=== PATIENT | female | born 1950 | race Caucasian/White ===

== ENCOUNTER → 2019-10-17 13:48 | Outpatient (BNVA) | payer MEDICARE, SELFPAY | PROVIDERS: Family Provider Electrodiagnostic Medicine; PCP Electrodiagnostic Medicine; Referring Provider Internal Medicine Rheumatology; Visit Provider Internal Medicine Rheumatology | DX: Z79.899 Other long term (current) drug therapy (principal); M05.79 Rheumatoid arthritis with rheumatoid factor of multiple sites without organ or systems involvement; Z51.81 Encounter for therapeutic drug level monitoring | CPT/HCPCS: 36415; 82565; 84460; 85025; 85651; 86140 ==

== ENCOUNTER → 2019-10-25 08:55 | Outpatient (BNVA) | payer MEDICARE, SELFPAY | PROVIDERS: Family Provider Electrodiagnostic Medicine; PCP Electrodiagnostic Medicine; Referring Provider Family Medicine; Visit Provider Internal Medicine Rheumatology | DX: M05.79 Rheumatoid arthritis with rheumatoid factor of multiple sites without organ or systems involvement (principal); Z79.899 Other long term (current) drug therapy | CPT/HCPCS: 99213 ==

== ENCOUNTER 2019-12-02 12:02 | Outpatient (CLI) | payer MEDICARE, SELFPAY ==
--- NOTE | 2019-12-02 12:08 | MM_ITS ---
WS: [id number] BILATERAL SCREENING DIGITAL MAMMOGRAM WITH CAD HISTORY: SCREENING COMPARISON: 11/02/2018 and 10/30/2017 Bilateral CC and MLO views submitted. Computer aided detection analyzed. Breast composition: There are scattered areas of fibroglandular density. No suspicious masses, microc alcifications or architectural distortion. Benign calcifications within each breast. MM/[place] [id number] IMPRESSION: BI-RADS: 2-Benign FOLLOW UP: 1 Year Follow-up
== END 2019-12-02 12:03 | disposition home or self-care (01) ==
LOC: RADSHAW 12:08
PROVIDERS: Family Provider Electrodiagnostic Medicine; PCP Electrodiagnostic Medicine; Visit Provider Electrodiagnostic Medicine
DX: Z12.31 Encounter for screening mammogram for malignant neoplasm of breast (principal)
CPT/HCPCS: 77067

== ENCOUNTER → 2020-01-16 09:27 | Outpatient (BNVA) | payer MEDICARE, SELFPAY | PROVIDERS: Family Provider Electrodiagnostic Medicine; PCP Electrodiagnostic Medicine; Visit Provider Internal Medicine Rheumatology | DX: M05.79 Rheumatoid arthritis with rheumatoid factor of multiple sites without organ or systems involvement (principal); Z79.899 Other long term (current) drug therapy; Z11.59 Encounter for screening for other viral diseases; Z72.89 Other problems related to lifestyle | CPT/HCPCS: 36415; 80076; 82565; 85025; 85651; 86803 ==

== ENCOUNTER → 2020-01-29 09:41 | Outpatient (BNVA) | payer MEDICARE, SELFPAY | PROVIDERS: Family Provider Electrodiagnostic Medicine; PCP Electrodiagnostic Medicine; Visit Provider Internal Medicine Rheumatology | DX: M05.79 Rheumatoid arthritis with rheumatoid factor of multiple sites without organ or systems involvement (principal); Z79.899 Other long term (current) drug therapy; R76.8 Other specified abnormal immunological findings in serum; Z11.59 Encounter for screening for other viral diseases | CPT/HCPCS: 36415; 86140; 86803; 87522 ==

== ENCOUNTER 2020-03-09 10:26 | Outpatient (CLI) | payer MEDICARE, SELFPAY ==
--- NOTE | 2020-03-09 10:58 | XR_ITS ---
WS: [id number] LUMBAR SPINE TECHNIQUE: 3 views of the lumbar spine CLINICAL INFORMATION: BACK PAIN LUMBAR, SACROILIITIS COMPARISON: April 14, 2016 FINDINGS: Mild lumbar curve convex right. Moderate spinal lytic changes. Disc space narrowing worse at L3-L4 L4 -L5 and L5-S1. Moderate facet arthropathy L4-L5 and L5-S1. A few Schmorl's nodes in the lower thoraci c spine. Aortic calcification. XR/XR lumbar spine 2-3V* [id number] IMPRESSION: 1. Mild lumbar curve convex right. 2. Moderate spondylitic changes with disc space narrowing worse at L3-L4 L4-L5 and L5-S1. This is slightly progressed from 2016. 3. Moderate facet arthropathy L4-L5 and L5-S1.
== END 2020-03-09 10:27 | disposition home or self-care (01) ==
LOC: RADWPI 10:30
PROVIDERS: Family Provider Electrodiagnostic Medicine; PCP Electrodiagnostic Medicine; Visit Provider Electrodiagnostic Medicine
DX: F51.04 Psychophysiologic insomnia (principal); M54.5 Low back pain; M46.1 Sacroiliitis, not elsewhere classified; M06.9 Rheumatoid arthritis, unspecified; M47.817 Spondylosis without myelopathy or radiculopathy, lumbosacral region
CPT/HCPCS: 72100

== ENCOUNTER → 2020-04-02 11:31 | Outpatient (BNVA) | payer MEDICARE, SELFPAY | PROVIDERS: Family Provider Electrodiagnostic Medicine; PCP Electrodiagnostic Medicine; Visit Provider Internal Medicine Rheumatology | DX: M05.79 Rheumatoid arthritis with rheumatoid factor of multiple sites without organ or systems involvement (principal); Z79.899 Other long term (current) drug therapy; M47.816 Spondylosis without myelopathy or radiculopathy, lumbar region; M19.041 Primary osteoarthritis, right hand; M19.042 Primary osteoarthritis, left hand | CPT/HCPCS: 99214 ==

== ENCOUNTER 2020-04-06 13:49 | Outpatient (CLI) | payer MEDICARE, SELFPAY ==
--- NOTE | 2020-04-06 14:01 | XR_ITS ---
WS: [id number] HAND LEFT TECHNIQUE: 3 views of the left hand CLINICAL INFORMATION: rheumatoid arthritis COMPARISON: None. FINDINGS: Mild degenerative arthritis at the first CMC and STT with joint space narrowing. Chronic well-cortica zohra ulna styloid process fracture. Calcification along the TFCC. Mild narrowing of the radiocarpal erika int. No significant erosive changes. XR/XR hand LT min 3V* [id number] IMPRESSION: 1. No significant erosive changes. 2. Mild degenerative arthritis first CMC and STT.
--- NOTE | 2020-04-06 14:01 | XR_ITS ---
WS: [id number] FOOT RIGHT TECHNIQUE: 3 views of the right foot CLINICAL INFORMATION: rheumatoid arthritis COMPARISON: None. FINDINGS: Evidence of prior healed fracture second metatarsal shaft with cortical thickening No evidence of acute fracture or dislocation. Normal tarsal metatarsal alignment. Normal calcaneus. N ormal visualized talar dome. No acute findings. XR/XR foot RT min 3V* [id number] IMPRESSION: Unremarkable right foot.
--- NOTE | 2020-04-06 14:01 | XR_ITS ---
WS: [id number] HAND RIGHT TECHNIQUE: 3 views of the right hand CLINICAL INFORMATION: rheumatoid arthritis COMPARISON: None. FINDINGS: Moderate degenerative arthritis first CMC and STT with subchondral sclerosis and cystic change. Normal metacarpals. Normal MCP joint. Metacarpal heads are normal in appearance. Normal PIP and DIP j oints. No evidence of acute fracture or dislocation. Radiocarpal joint: Normal. XR/XR hand RT min 3V* [id number] IMPRESSION: 1. Moderate degenerative arthritis the first CMC and STT. 2. No erosive changes.
--- NOTE | 2020-04-06 14:01 | XR_ITS ---
WS: [id number] FOOT LEFT TECHNIQUE: 3 views of the left foot CLINICAL INFORMATION: rheumatoid arthritis COMPARISON: None. FINDINGS: No evidence of acute fracture or dislocation. Normal tarsal metatarsal alignment. Normal calcaneus. N ormal visualized talar dome. No acute findings. XR/XR foot LT min 3V* [id number] IMPRESSION: Normal left foot.
== END 2020-04-06 13:50 | disposition home or self-care (01) ==
LOC: RADWPI 13:53
PROVIDERS: Family Provider Electrodiagnostic Medicine; PCP Electrodiagnostic Medicine; Visit Provider Internal Medicine Rheumatology
DX: M06.9 Rheumatoid arthritis, unspecified (principal); M19.042 Primary osteoarthritis, left hand; M19.041 Primary osteoarthritis, right hand
CPT/HCPCS: 73130; 73630

== ENCOUNTER 2020-04-24 10:39 | Emergency (ER) | payer MEDICARE, SELFPAY ==
[2020-04-24 10:42] VITALS: PULSE 103; RESP 16; TEMP 36.4; O2SAT 99; BMI 26.2
--- NOTE | 2020-04-24 10:44 | XRR_ITS ---
PROCEDURE INFORMATION: Exam: XR Chest, 1 View Exam date and time: 04/24/2020 11:00 AM Age: 69 years old Clinical indication: Cough and dyspnea; Additional info: Dyspnea/cough TECHNIQUE: Imaging protocol: XR of the chest Views: 1 view. COMPARISON: CR Chest 2 views* [id number] 10/04/2018 1:41 PM FINDINGS: Lungs: Unremarkable. No consolidation. Pleural space: Unremarkable. No pleural effusion. No pneumothorax. Heart/Mediastinum: Unremarkable. No cardiomegaly. Bones/joints: Unremarkable. XR/XR chest 1V portable [id number] IMPRESSION: No acute findings.
--- NOTE | 2020-04-24 10:44 | ECG_ITS ---
[facility] Test Date: 2020-04-24 Pat Name: Judy Brian Department: Room: Gender: Female Pocket Stitcher: : 1950 Requested By: Niranjan Ennis Order Number: [id number] Hesham MD: Dustin Hernandez M.D. Measurements Intervals [place] Rate: 78 P: 19 PA: 157 QRS: -13 QRSD: 90 T: 43 QT: 366 QTc: 418 Interpretive Statements SINUS RHYTHM No previous ECG available for comparison Electronically Signed On 04-24-2020 20:12:49 CDT by Dustin Hernandez M.D. [id number]
--- NOTE | 2020-04-24 11:06 | ED_ITS ---
HPI - General Adult General: Chief complaint: General Medical Stated complaint: HIGH BP Time Seen by Provider: 04/24/20 10:41 History of Present Illness: HPI narrative: 69-year-old female presents with elevated blood pressure. She has a history of rheumatoid arthritis and had her medicine changed to stop methotrexate and started Leslumonide. After that she noticed her blood pressure being elevated she is not currently on any blood pressure medications and generally has not been treated for blood pressure issues in the past. She denies any headache difficulty with speech or swallowing any numbness or tingling or weakness in her extremities. Onset (ago): hour(s) Radiation: non-radiation Severity: moderate Associated symptoms: Reports no associated symptoms; Deny chest pain, dyspnea, malaise, nausea, rash or vomiting Treatments prior to arrival: none Review of Systems Const: Denies: fever(s), chills, body aches, change in appetite, fatigue or malaise ENMT: Denies: throat pain, ear or mastoid pain, nasal discharge or nasal congestion Card: Denies: chest pain, edema, dyspnea on exertion or orthopnea Resp: Denies: dyspnea, productive cough or non-productive cough GI: Denies: abdominal pain, nausea, vomiting, hematemesis, coffee ground emesis, diarrhea, constipation, bloating, hematochezia or melena : Denies: flank pain, difficulty voiding, dysuria, urinary frequency or urinary urgency Skin/Breast: Denies: rash or pruritus PFS ED PFSH: Medical History Degenerative joint disease (DJD) of lumbar spine Hepatitis C antibody test positive High risk medication use Immunization counseling Recurrent UTI Surgical History History of cholecystectomy History of hysterectomy with bilateral oophorectomy History of thyroid surgery Family History Other CAD (coronary artery disease) Diabetes Hypertension Rheumatoid arthritis Denies family history of Chronic kidney disease (CKD) Systemic lupus erythematosus (SLE) in adult Lung disease Cancer Stroke Social History Smoking and tobacco status: former smoker Quit status (tobacco): has quit using tobacco Year quit tobacco: 2007 Alcohol intake: current Alcohol intake frequency: 0-2 Drinks per Day Alcohol t ype: wine Lives independently: No Marital status: Current occupational status: employed History of recent travel: No Physical Exam Const: COMMON NORMALS: no acute distress GENERAL APPEARANCE: cooperative and comfortable ORIENTATION/CONSCIOUSNESS: Yes awake, Yes oriented to person, Yes oriented to place and Yes oriented to time HENMT: COMMON NORMALS: normocephalic, atraumatic, hearing grossly normal bilaterally, external ears normal, EAC's normal, TM's normal bilaterally, Normal nasal mucous membranes and turbinates present, moist oral mucous membranes and oropharynx normal HEAD & SCALP: normocephalic and atraumatic NOSE: Normal nasal mucous membranes and turbinates present EXTERNAL EAR: Yes external ears normal EXTERNAL AUDITORY CANAL: EAC's normal TYMPANIC MEMBRANE: TM's normal bilaterally Eye: COMMON NORMALS: Equal, round and reactive pupils present, EOMs intact bilaterally, conjunctivae normal and no scleral icterus CONJUNCTIVA: Yes conjunctivae normal PUPIL: Yes Equal, round and reactive pupils present Neck/C-Spine: COMMON NORMALS: full ROM, no lymphadenopathy, supple and no JVD Lymph: LYMPHATIC: no lymphadenopathy noted and no lymphedema noted Resp: COMMON NORMALS: normal respiratory effort, No retractions, No use of accessory muscles and clear to auscultation bilaterally AUSCULTATION: clear to auscultation bilaterally Cardio: COMMON NORMALS: no JVD, regular rate, regular rhythm and No murmurs present (Cardio) RATE: regular rate RHYTHM: regular rhythm GI: COMMON NORMALS: Soft to palpation and No hepatosplenomegaly present AUSCULTATION: Yes normoactive bowel sounds PALPATION: Yes Soft to palpation, No Tenderness to palpation present (GI), No Guarding due to palpation present (GI) and Yes No hepatosplenomegaly present Extremity: COMMON NORMALS: normal to inspection, capillary refill normal, no clubbing, cyanosis or edema, no calf tenderness and no pedal edema Neuro: SENSORIUM/ORIENTATION: Yes oriented to person, Yes oriented to place and Yes oriented to time Skin: COMMON NORMALS: no rashes or lesions noted GENERAL SKIN EXAM: no rashes or lesions noted Course Vital Signs: Vital signs: Vital Signs Temperature 98.9 F 04/24/20 13:49 Pulse Rate 93 04/24/20 13:49 Respiratory Rate 16 04/24/20 13:49 Blood Pressure 143/79 04/24/20 13:49 Pulse Oximetry 97 04/24/20 13:49 MDM - General Adult MDM Narrative: Medical decision making narrative: Reviewed findings we will go ahead and add amlodipine. Recheck with primary care doctor within 1 week. If has any worsening problems return to the emergency room Lab Data: Labs: Lab Results 04/24/20 04/24/20 Range/Units 11:02 11:02 WBC 6.5 (4.0-10.0) 10^3/ uL RBC 4.62 (4.1-5.3) 10^6/u L Hgb 15.8 H (11.5-15.3) g/dL Hct 45.9 (37.0-47.0) % MCV 99.4 H (81-99) fL MCH 34.2 H (28.0-34.0) pg MCHC 34.4 (30.0-36.0) g/dL RDW 13.1 (12.1-15.1) % Plt Count 227 (130-400) 10^3/c mm MPV 10.3 (7.4-10.4) fL Neut % (Auto) 41.0 % Lymph % (Auto) 39.9 % [place] % (Auto) 15.6 % Eos % (Auto) 1.5 % Baso % (Auto) 1.8 % Neut # (Auto) 2.66 (1.8-7.7) 10^3/u L Lymph # (Auto) 2.6 (0.8-4.8) 10^3/u L [place] # (Auto) 1.0 H (0.2-0.9) 10^3/u L Eos # (Auto) 0.1 (0.0-0.8) 10^3/u L Baso # (Auto) 0.1 (0.0-0.1) 10^3/u L Nucleated RBC % (a uto) 0 % Nucleated RBCs # 0.0 /100WBC Sodium 137 (136-145) mmol/L Potassium 4.4 (3.5-5.1) mmol/L Chloride 102 (98-107) mmol/L Carbon Dioxide 24 (22-29) mmol/L Anion Gap 15.4 (5-19) BUN 12 (8-23) mg/dL Creatinine 0.8 (0.5-0.9) mg/dL GFR Calculation 71.1 L (90-130) mL/min Glucose 123 H (65-115) mg/dL Calculated Osmolal ity 281 L (285-295) mOsm/k g Calcium 10.0 (8.5-10.5) mg/dL Total Bilirubin 0.4 (0.15-1.2) mg/dL AST 37 H (0-32) U/L ALT 33 (0-33) U/L Alkaline Phosphata se 91 (35-105) IU/L Total Protein 8.6 (6.6-8.7) g/dL Albumin 4.9 (3.5-5.2) g/dL Globulin 3.7 (1.3-4.6) g/dL Discharge Plan Discharge Patient Disposition: Home Clinical Impression: Hypertension, Seropositive rheumatoid arthritis of multiple joints, High risk medication use Condition: Stable Prescriptions: New amlodipine 5 mg tablet 5 mg PO DAILY Qty: 30 RF: 0 No Action Enbrel SureClick 50 mg/mL (1 mL) pen injector 50 mg SUBCUT Q7D RF: 0 vitamin B complex Tablet 1 tab PO DAILY RF: 0 amitriptyline 50 mg tablet 50 mg PO BEDTIME RF: 0 multivitamin Tablet 1 tab PO QAM RF: 0 cholecalciferol (vitamin D3) 3,000 unit tablet 3,000 unit PO DAILY RF: 0 folic acid 800 mcg tablet 800 mg PO BID RF: 0 leflunomide 10 mg tablet 10 mg PO DAILY Qty: 30 RF: 2 prednisone 10 mg tablet See Rx Instructions PO .COMPLEX PRN (Reason: joint pain) Qty: 30 RF: 2 celecoxib 200 mg capsule 200 mg PO DAILY RF: 0 hydrocodone-acetaminophen 5-325 mg tablet 1 tab PO Q8H PRN (Reason: Pain) RF: 0 estradiol 0.5 mg tablet 0.5 mg PO DAILY RF: 0 Flonase Allergy Relief 50 mcg/actuation [place],Suspension 1 - 2 spray INTRANASAL PRN RF: 0 melatonin 5 mg Tablet 5 mg PO BEDTIME PRN (Reason: Sleep) RF: 0 biotin 1 cap PO DAILY RF: 0 diclofenac sodium 1 % gel 2 gm TOPICAL QID PRN (Reason: Pain) RF: 0 Discharge Orders: Discharge Order (Routine); Ordered 07/24/20 Ordered By: Niranjan Heart Referrals: Nino Olson, [Primary Care Provider] - Activity Restrictions/Additional Instructions: 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 Discharge Date/Time: 04/24/20 13:52 Coding Level of Care Code ED Carpentry Teacher for Chg Fwd Exam Comprehensive
[2020-04-24 11:10] VITALS: BP 181/89; PULSE 88; RESP 16; O2SAT 97
[2020-04-24 11:11] LABS: Basophils # 0.1 10^3/uL (0.0-0.1); Basophils % 1.8 %; Eosinophils # 0.1 10^3/uL (0.0-0.8); Eosinophils % 1.5 %; Hematocrit 45.9 % (37.0-47.0); Hemoglobin 15.8 g/dL (11.5-15.3); Lymphocytes # 2.6 10^3/uL (0.8-4.8); Lymphocytes % 39.9 %; Mean Corpuscular HGB Conc 34.4 g/dL (30.0-36.0); Mean Corpuscular Hemoglobin 34.2 pg (28.0-34.0); Mean Corpuscular Volume 99.4 fL (81-99); Mean Platelet Volume 10.3 fL (7.4-10.4); Monocytes % 15.6 %; Neutrophils # 2.66 10^3/uL (1.8-7.7); Nucleated Red Blood Cells % 0 %; Platelet Count 227 10^3/cmm (130-400); Red Blood Count 4.62 10^6/uL (4.1-5.3); Red Cell Distribution Width 13.1 % (12.1-15.1); White Blood Count 6.5 10^3/uL (4.0-10.0)
[2020-04-24 11:24] LABS: Alanine Aminotransferase 33 U/L (0-33); Albumin Level 4.9 g/dL (3.5-5.2); Alkaline Phosphatase 91 IU/L (35-105); Anion Gap 15.4 (5-19); Aspartate Amino Transferase 37 U/L (0-32); Blood Urea Nitrogen 12 mg/dL (8-23); Carbon Dioxide 24 mmol/L (22-29); Chloride 102 mmol/L (98-107); Creatinine Clr Calc Pharmacy 58.6795; Globulin 3.7 g/dL (1.3-4.6); Glomerular Filtration Rate 71.1 mL/min (90-130); Glucose 123 mg/dL (65-115); Osmolality Calculated 281 mOsm/kg (285-295); Potassium 4.4 mmol/L (3.5-5.1); Sodium 137 mmol/L (136-145); Total Bilirubin 0.4 mg/dL (0.15-1.2); Total Protein 8.6 g/dL (6.6-8.7)
[2020-04-24] MEDS: hyDRALAzine 20 mg/mL INJ 1 mL 5 MG IVP (11:27)
[2020-04-24] MEDS: amlodipine 5 mg Tablet PO (11:27)
[2020-04-24 11:40] VITALS: BP 151/82; PULSE 92; RESP 18; O2SAT 99
[2020-04-24 12:08] VITALS: BP 147/69; PULSE 90; RESP 16; O2SAT 96
[2020-04-24 13:36] VITALS: BP 143/79; PULSE 93; RESP 16; O2SAT 97
[2020-04-24 13:49] VITALS: BP 143/79; PULSE 93; RESP 16; TEMP 37.2; O2SAT 97
== END 2020-04-24 13:52 | disposition home or self-care (01) ==
PROVIDERS: Emergency Provider Family Medicine; PCP Electrodiagnostic Medicine
DX: I10 Essential (primary) hypertension (principal); M05.9 Rheumatoid arthritis with rheumatoid factor, unspecified; Z86.19 Personal history of other infectious and parasitic diseases; Z87.891 Personal history of nicotine dependence
CPT/HCPCS: 12345; 71045; 80053; 85025; 93005; 96374; 96375; 99283; 99284; J0360

== ENCOUNTER → 2020-05-06 09:51 | Outpatient (BNVA) | payer MEDICARE, SELFPAY | PROVIDERS: PCP Electrodiagnostic Medicine; Visit Provider Internal Medicine Rheumatology | DX: Z79.899 Other long term (current) drug therapy (principal); M06.9 Rheumatoid arthritis, unspecified | CPT/HCPCS: 36415; 80076; 82306; 82310; 82565; 85025; 85651; 86140 ==

== ENCOUNTER → 2020-06-29 12:54 | Outpatient (BNVA) | payer MEDICARE, SELFPAY | PROVIDERS: PCP Electrodiagnostic Medicine; Referring Provider Dermatology; Visit Provider Dermatology | DX: Z85.828 Personal history of other malignant neoplasm of skin (principal); D48.5 Neoplasm of uncertain behavior of skin; L57.0 Actinic keratosis; L57.8 Other skin changes due to chronic exposure to nonionizing radiation; D48.9 Neoplasm of uncertain behavior, unspecified | CPT/HCPCS: 11102; 17000; 17003; 88304; 99203; 99204 ==

== ENCOUNTER 2020-07-06 13:57 | Outpatient (CLI) | payer MEDICARE, SELFPAY ==
--- NOTE | 2020-07-06 14:51 | MR_ITS ---
WS: [id number] MRI LUMBAR SPINE NONCONTRAST TECHNIQUE: Sagittal T1, T2 and STIR imaging. Axial T1 and T2 imaging. CLINICAL INFORMATION: LOW BACK PAIN W/ RADICULOPATHY COMPARISON: None. FINDINGS: Mild lumbar curve. No acute compression. Disc bulging worse at L2-L3 L3-L4 and L4-5. Small disc protr usions in the lower thoracic spine at T10-T11 and T11-T12. L1-L2: Mild annular bulging with slight effacement of the ventral thecal sac. Slight narrowing of the right subarticular recess. Mild facet arthropathy. L2-L3: Mild disc bulging with osteophytic ridging. Mild central canal stenosis. Impingement on the le ft subarticular recess. Moderate facet arthropathy. Small left foraminal protrusion with mild left an d no significant right foraminal narrowing. L3-L4: Disc osteophyte complex with endplate ridging. Severe central canal stenosis. Moderate facet a rthropathy. Impingement subarticular recess bilaterally. Moderate left and no significant right lanie inal narrowing. L4-L5: Mild disc bulging with endplate ridging. Moderate to severe central canal stenosis with modera te facet arthropathy. Impingement on the traversing L5 nerve roots. Moderate to severe right and mild left foraminal narrowing. L5-S1: Mild disc bulging with osteophytic ridging. Slight impingement traversing left greater than ri ght S1 nerve roots. Mild bilateral foraminal narrowing left greater than right. Mild facet arthropath y. Visualized pelvic bony structures: Normal. Paravertebral soft tissues: Normal. MR/MR lumbar spine wo con* [id number] IMPRESSION: 1. Severe central canal stenosis L3-4 and moderate to severe central canal raven nosis L4-5 due to disc bulging with facet arthropathy and ligament flavum hyper trophy. 2. Moderate to severe right L4-5 foraminal narrowing. 3. Mild to moderate foraminal narrowing at left L2-3, left L3-4, left greater than right L5-S1. 4. Moderate to advanced facet arthropathy L3-L4 and L4-L5.
== END 2020-07-06 13:58 | disposition home or self-care (01) ==
PROVIDERS: PCP Electrodiagnostic Medicine; Visit Provider Electrodiagnostic Medicine
DX: M54.16 Radiculopathy, lumbar region (principal); M48.061 Spinal stenosis, lumbar region without neurogenic claudication; M47.816 Spondylosis without myelopathy or radiculopathy, lumbar region
CPT/HCPCS: 72148

== ENCOUNTER → 2020-07-14 08:59 | Outpatient (BNVA) | payer MEDICARE, SELFPAY | PROVIDERS: Family Provider Electrodiagnostic Medicine; PCP Electrodiagnostic Medicine; Visit Provider Internal Medicine Rheumatology | DX: M05.79 Rheumatoid arthritis with rheumatoid factor of multiple sites without organ or systems involvement (principal); Z79.899 Other long term (current) drug therapy; M47.816 Spondylosis without myelopathy or radiculopathy, lumbar region; M19.041 Primary osteoarthritis, right hand; M19.042 Primary osteoarthritis, left hand | CPT/HCPCS: 99214 ==

== ENCOUNTER → 2020-08-03 10:30 | Outpatient (BNVA) | payer MEDICARE, SELFPAY | PROVIDERS: Family Provider Electrodiagnostic Medicine; PCP Electrodiagnostic Medicine; Visit Provider Dermatology | DX: D48.9 Neoplasm of uncertain behavior, unspecified (principal) | CPT/HCPCS: 88304 ==

== ENCOUNTER 2020-08-12 09:41 | Outpatient (CLI) | payer MEDICARE, SELFPAY ==
--- NOTE | 2020-08-12 09:51 | XR_ITS ---
WS: [id number] Chest 2 views, 08/12/2020 Clinical Data: BRONCHITIS, ACUTE Comparison: Portable chest, 04/24/2020. Findings: No nodules, masses or effusions are seen. The heart is normal. The pulmonary vascularity is not increased. No pneumonia or pneumothorax is seen. There is minimal atherosclerotic change of the aortic arch. XR/XR chest 2V* [id number] Impression: Atherosclerosis.
== END 2020-08-12 09:42 | disposition home or self-care (01) ==
PROVIDERS: PCP Electrodiagnostic Medicine; Visit Provider Electrodiagnostic Medicine
DX: J20.9 Acute bronchitis, unspecified (principal); I70.90 Unspecified atherosclerosis
CPT/HCPCS: 71046

== ENCOUNTER → 2020-09-10 12:57 | Outpatient (BNVA) | payer MEDICARE, SELFPAY | PROVIDERS: PCP Electrodiagnostic Medicine; Visit Provider Specialist | DX: Z20.828 Contact with and (suspected) exposure to other viral communicable diseases (principal); Z01.812 Encounter for preprocedural laboratory examination | CPT/HCPCS: 87635 ==

== ENCOUNTER 2020-09-15 10:49 | Outpatient (CLI) | payer MEDICARE, SELFPAY ==
--- NOTE | 2020-09-15 13:15 | PFTS_ITS ---
Date of Study:09/15/20 Date of Dictation: 09/15/20 MECHANICS: Forced vital capacity (FVC) is normal 117 normal 117 Forced expiratory volume in one second (FEV1) is normal 117. FEV1/FVC is normal 78 FLOW VOLUME LOOP: Normal . LUNG VOLUMES: Not measured DIFFUSING CAPACITY FOR CARBON MONOXIDE: Not measured . INTERPRETATION: The spirometry is normal. Please correlate clinically MTDD
== END 2020-09-15 10:50 | disposition home or self-care (01) ==
LOC: RT 10:50
PROVIDERS: PCP Electrodiagnostic Medicine; Visit Provider Specialist
DX: J37.0 Chronic laryngitis (principal)
CPT/HCPCS: 94010

== ENCOUNTER 2020-10-14 09:58 | Outpatient (CLI) | payer MEDICARE, SELFPAY ==
--- NOTE | 2020-10-14 10:24 | XR_ITS ---
WS: [id number] Right hand, 3 views, 10/14/2020 Clinical Data: RHEUMATOID ARTHRITIS Comparison: Right hand, 04/06/2020. Findings: No fractures or dislocations are seen. The soft tissues are unremarkable. There is osteoa rthritic change of the trapezium articulation with the base of the right first metacarpal.No periarti cular demineralization or calcifications are seen. XR/XR hand RT 2V [id number] Impression: Osteoarthritis unchanged at the base of the right first metacarpal.
--- NOTE | 2020-10-14 10:24 | XR_ITS ---
WS: [id number] Left hand, 2 views, 10/14/2020 Clinical Data: RHEUMATOID ARTHRITIS Comparison: Left hand, 04/06/2020. Findings: No fractures or dislocations are seen. The soft tissues are unremarkable. There is osteoarthritic ismael nge at the base of the left first metacarpal. No periarticular demineralization or calcifications are seen. There is an old injury of the ulnar styloid. 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
--- NOTE | 2020-10-14 10:24 | XR_ITS ---
WS: [id number] Chest 2 views, 10/14/2020 Clinical Data: SCREENING FOR TUBERCULOSIS Comparison: PA and lateral chest, 08/12/2020. Findings: No nodules, masses or effusions are seen. The heart is normal. The pulmonary vascularity is not increased. No pneumonia or pneumothorax is seen. The aortic arch shows minimal calcification XR/XR chest 2V* [id number] Impression: Atherosclerosis.
[2020-10-14 12:58] LABS: Basophils # 0.1 10^3/uL (0.0-0.1); Basophils % 0.8 %; Eosinophils # 0.1 10^3/uL (0.0-0.8); Eosinophils % 0.8 %; Hematocrit 42.4 % (37.0-47.0); Hemoglobin 14.7 g/dL (11.5-15.3); Lymphocytes # 2.2 10^3/uL (0.8-4.8); Lymphocytes % 34.5 %; Mean Corpuscular HGB Conc 34.7 g/dL (30.0-36.0); Mean Corpuscular Hemoglobin 34.9 pg (28.0-34.0); Mean Corpuscular Volume 100.7 fL (81-99); Mean Platelet Volume 10.1 fL (7.4-10.4); Monocytes # 0.9 10^3/uL (0.2-0.9); Monocytes % 13.9 %; Neutrophils % 49.8 %; Nucleated Red Blood Cells % 0 %; Platelet Count 272 10^3/cmm (130-400); Red Blood Count 4.21 10^6/uL (4.1-5.3); Red Cell Distribution Width 12.1 % (12.1-15.1); White Blood Count 6.4 10^3/uL (4.0-10.0)
[2020-10-14 13:18] LABS: Alanine Aminotransferase 57 U/L (0-33); C Reactive Protein 5.1 mg/L (0.0-4.9); Glomerular Filtration Rate 98.8 mL/min (90-130)
[2020-10-14 13:35] LABS: Erythrocyte Sedimentation Rate 15 mm/hr (0-15)
[2020-10-15 11:42] LABS: Cyclic Citrullinated Peptide 183 UNITS
[2020-10-16 12:43] LABS: Quantiferon Mitogen >10.00 IU/mL; Quantiferon Nil 0.04 IU/mL; Quantiferon TB Gold NEGATIVE (NEGATIVE)
== END 2020-10-14 09:59 | disposition home or self-care (01) ==
PROVIDERS: PCP Electrodiagnostic Medicine; Visit Provider Internal Medicine Rheumatology
DX: Z11.1 Encounter for screening for respiratory tuberculosis (principal); M19.042 Primary osteoarthritis, left hand; M19.041 Primary osteoarthritis, right hand; I70.90 Unspecified atherosclerosis
CPT/HCPCS: 36415; 71046; 73120; 82565; 84460; 85025; 85651; 86140; 86431; 86480

== ENCOUNTER 2020-12-31 11:37 | Outpatient (CLI) | payer MEDICARE, SELFPAY ==
--- NOTE | 2020-12-31 11:42 | MM_ITS ---
WS: [id number] BILATERAL SCREENING DIGITAL MAMMOGRAM WITH CAD HISTORY: SCREENING COMPARISON: 12/02/2019 and 11/02/2018 Bilateral CC and MLO views submitted. Computer aided detection analyzed. Breast composition: There are scattered areas of fibroglandular density. No suspicious masses, microc alcifications or architectural distortion. Scattered benign calcifications in each breast. MM/[place] [id number] IMPRESSION: BI-RADS: 2-Benign FOLLOW UP: 1 Year Follow-up
== END 2020-12-31 11:38 | disposition home or self-care (01) ==
PROVIDERS: PCP Electrodiagnostic Medicine; Visit Provider Electrodiagnostic Medicine
DX: Z12.31 Encounter for screening mammogram for malignant neoplasm of breast (principal)
CPT/HCPCS: 77067

== ENCOUNTER 2021-01-15 14:18 | Outpatient (CLI) | payer MEDICARE, SELFPAY ==
--- NOTE | 2021-01-15 14:24 | XR_ITS ---
WS: [id number] Bone mineral density performed on a bead Button, today Clinical data: POST MENOPAUSAL STATUS Comparison study: DEXA scan, 05/02/2019. Findings: The first 4 lumbar vertebral bodies demonstrated the bone mineral density of 1.428 g/cm2 for a young adult T score of 2.1. The bone mineral density has diminished but the young adult T score has improv ed compared to the prior scan. Measurement of the left hip reveals a bone mineral density of 0.860 g/cm2 with a young adult T score of -1.2. The bone mineral density and the deltoid score have improved compared to prior scan. Measurement of the right hip reveals the bone mineral density of 0.857 g/cm2 for young adult T score of -1.2. The bone mineral density and the young adult T score have improved compared to the prior sca n. XR/XR DEXA axial skeleton* [id number] Impression: Osteopenia of the lumbar spine and both hips.
== END 2021-01-15 14:19 | disposition home or self-care (01) ==
PROVIDERS: PCP Electrodiagnostic Medicine; Visit Provider Electrodiagnostic Medicine
DX: Z78.0 Asymptomatic menopausal state (principal); M85.88 Other specified disorders of bone density and structure, other site
CPT/HCPCS: 77080

== ENCOUNTER 2021-04-06 09:39 | Outpatient (CLI) | payer MEDICARE, SELFPAY ==
[2021-04-06 10:09] LABS: Hematocrit 41.4 % (37.0-47.0); Hemoglobin 14.2 g/dL (11.5-15.3); Mean Corpuscular HGB Conc 34.3 g/dL (30.0-36.0); Mean Corpuscular Hemoglobin 34.4 pg (28.0-34.0); Mean Corpuscular Volume 100.2 fL (81-99); Mean Platelet Volume 10.2 fL (7.4-10.4); Platelet Count 256 10^3/cmm (130-400); Red Blood Count 4.13 10^6/uL (4.1-5.3); Red Cell Distribution Width 12.7 % (12.1-15.1); White Blood Count 5.5 10^3/uL (4.0-10.0)
[2021-04-06 10:31] LABS: Alanine Aminotransferase 40 U/L (0-33); C Reactive Protein 4.9 mg/L (0.0-4.9); Glomerular Filtration Rate 98.8 mL/min (90-130)
[2021-04-06 10:55] LABS: Absolute Eosinophils 0.1 10^3/cmm (0.0-0.7); Absolute Neutrophil 2.8 10^3/cmm (1.4-6.5); Absolute Segmented Neutrophil 2.8 10/cmm (1.6-7.1); Eosinophils 2 %; Lymphocytes 39 %; Lymphocytes Absolute 2.3 10^3/cmm (1.2-3.4); Monocytes Absolute 0.4 10^3/cmm (0.1-0.6); Platelet Estimate Normal (Normal); Segmented Neutrophils 50 %; Total Cells Counted 100 (0-100)
[2021-04-06 11:06] LABS: Erythrocyte Sedimentation Rate 17 mm/hr (0-15)
== END 2021-04-06 09:40 | disposition home or self-care (01) ==
PROVIDERS: PCP Electrodiagnostic Medicine; Visit Provider Internal Medicine Rheumatology
DX: M05.79 Rheumatoid arthritis with rheumatoid factor of multiple sites without organ or systems involvement (principal)
CPT/HCPCS: 82565; 84460; 85007; 85027; 85651; 86140

== ENCOUNTER 2022-03-11 13:08 | Outpatient (CLI) | payer MEDICARE, SELFPAY ==
--- NOTE | 2022-03-11 13:22 | MM_ITS ---
WS: [id number] BILATERAL 3D TOMOSYNTHESIS DIGITAL SCREENING MAMMOGRAPHY WITH CAD CLINICAL INFORMATION: SCREENING HISTORY: Screening mammogram. No current complaints. COMPARISON: December 31, 2020 TECHNIQUE: Bilateral CC and MLO views. FINDINGS: Scattered fibroglandular densities bilaterally. Punctate and lucent calcifications. Stable clustered calcifications. Vascular calcifications. No suspicious focal mass, asymmetry, calcifications, or arch itectural distortion. No evidence of malignancy. MM/[place] [id number] IMPRESSION: BI-RADS: 2-Benign FOLLOW UP: 1 Year Follow-up Recommend return to annual screening mammography.
== END 2022-03-11 13:09 | disposition home or self-care (01) ==
LOC: RAD 13:09
PROVIDERS: PCP Electrodiagnostic Medicine; Visit Provider Electrodiagnostic Medicine
DX: Z12.31 Encounter for screening mammogram for malignant neoplasm of breast (principal)
CPT/HCPCS: 77063; 77067

== ENCOUNTER 2022-06-27 21:11 | Emergency (ER) | payer MEDICARE, SELFPAY ==
[2022-06-27 21:15] VITALS: BP 162/83; PULSE 95; RESP 16; TEMP 36.8; O2SAT 97; BMI 26.0
--- NOTE | 2022-06-27 21:36 | XRR_ITS ---
PROCEDURE INFORMATION: Exam: XR Right Shoulder Exam date and time: 06/27/2022 9:52 PM Age: 71 years old Clinical indication: Pain; Shoulder; Right; Additional info: Right shoulder pain TECHNIQUE: Imaging protocol: Radiologic exam of the Right shoulder. Views: 2 or more views. COMPARISON: CR XR chest 2V* [id number] 10/14/2020 12:23 PM FINDINGS: Bones/joints: Normal. The AC joint is normally aligned. Soft tissues: Normal. XR/XR shoulder RT min 2V* [id number] IMPRESSION: Unremarkable
--- NOTE | 2022-06-28 00:23 | W.ED.EXTPRO ---
HPI - Extremity Problem General: Chief complaint: Extremity Injury, Upper Stated complaint: Pain Right Shoulder\Front and Back Time Seen by Provider: 06/28/22 00:23 History of Present Illness: 71-year-old female comes in today for complaints of right shoulder pain. Patient has a history of rheumatoid arthritis. Patient reports that she did not fall or injure she just woke up with her pain was active in the shoulder. Patient had tried to get a hold of Dr. Olson for a refill on her hydrocodone but did not get response today. Patient came in seeking help for pain control of her shoulder. Patient appears nontoxic. Patient appears in moderate pain. Associated symptoms: Deny chest pain, fever(s) or rash Review of Systems Const: Denies: fever(s) Card: Denies: chest pain Resp: Denies: dyspnea Musc: Reports: joint pain Skin/Breast: Denies: rash PFSH ED PFSH: Medical History Degenerative joint disease (DJD) of lumbar spine Hepatitis C antibody test positive High risk medication use History of nonmelanoma skin cancer Immunization counseling Recurrent UTI Surgical History History of cholecystectomy History of hysterectomy with bilateral oophorectomy History of thyroid surgery Family History Other CAD (coronary artery disease) Diabetes Hypertension Rheumatoid arthritis Denies family history of Chronic kidney disease (CKD) Systemic lupus erythematosus (SLE) in adult Lung disease Cancer Stroke Social History Smoking and tobacco status: former smoker Quit status (tobacco): has quit using tobacco Year quit tobacco: 2007 Alcohol intake: current Alcohol intake frequency: 0-2 Drinks per Day Alcohol type: wine Lives independently: No Marital status: Current occupational status: employed History of recent travel: No Physical Exam Const: COMMON NORMALS: alert HENMT: COMMON NORMALS: normocephalic HEAD & SCALP: normocephalic Neck/C-Spine: COMMON NORMALS: full ROM Resp: COMMON NORMALS: normal respiratory effort Cardio: COMMON NORMALS: regular rate and regular rhythm RATE: regular rate RHYTHM: regular rhythm GI: COMMON NORMALS: Soft to palpation PALPATION: Yes Soft to palpation Back/Pelvis: COMMON NORMALS: thoracic and lumbar spine normal to inspection Extremity: RIGHT UPPER EXTREMITY: Yes shoulder joint (Anterior joint capsule swelling and tenderness no redness) Right shoulder: Yes Right shoulder joint inspection exam, Yes palpation and Yes Right shoulder joint ROM exam (Unable to perform range of motion due to pain) Neuro: SENSORIUM/ORIENTATION: Yes alert Skin: COMMON NORMALS: turgor normal GENERAL SKIN EXAM: turgor normal Course Vital Signs: Vital signs: Vital Signs Temperature 98.3 F 06/27/22 21:15 Pulse Rate 95 06/27/22 21:15 Respiratory Rate 16 06/27/22 21:15 Blood Pressure 162/83 06/27/22 21:15 Pulse Oximetry 97 06/27/22 21:15 Oxygen Delivery Me thod 06/27/22 21:15 MDM - Extremity (Nontraumatic) Medical Decision Making Patient came in tonight for complaints of uncontrolled shoulder pain with home medications. On exam patient has tenderness to the anterior right shoulder with some mild swelling. No redness or induration is noted to the area. Patient has decreased range of motion due to pain. Pulses and sensation are noted distally. Differential diagnosis includes bursitis, tendinitis, adhesive capsulitis. X-ray was unremarkable. Patient was treated with 10 mg of dexamethasone and 4 mg of morphine for her pain. Patient will be continued on some hydrocodone and prednisone for pain. Patient reported understanding of care plan and need for follow-up or return to the ER for worsening symptoms. Lab Data Radiology Impressions Shoulder X-Ray 06/27/22 21:36 IMPRESSION: Unremarkable Discharge Plan Discharge Patient Disposition: Home Clinical Impression: Right shoulder tendinitis Condition: Stable Prescriptions: New prednisone 20 mg tablet 20 mg PO BID 5 Days Qty: 10 0RF Changed hydrocodone-acetaminophen 5-325 mg tablet 1 tab PO Q6H PRN (Reason: Pain) Qty: 15 0RF Rx Instructions: pt states she also has 10-325mg from 5 years ago-pt states she takes only prn No Action diltiazem HCl [Cardizem CD] 240 mg capsule,extended release 24hr 240 mg PO DAILY losartan 25 mg tablet 25 mg PO DAILY hydrocortisone 2.5 % cream 1 applic topical BID Qty: 30 1RF Rx Instructions: Apply to face BID x 1-2 weeks. May use on hands BID 2 wks/mo prn vitamin B complex Tablet 1 tab PO DAILY amitriptyline 50 mg tablet 50 mg PO BEDTIME multivitamin Tablet 1 tab PO QAM cholecalciferol (vitamin D3) 3,000 unit tablet 3,000 unit PO DAILY folic acid 800 mcg tablet 800 mg PO BID Enbrel SureClick 50 mg/mL (1 mL) pen injector 50 mg SUBCUT Q7D Qty: 4 3RF Rx Instructions: pt states she takes on sundays prednisone 10 mg tablet See Rx Instructions PO .COMPLEX PRN (Reason: joint pain) Rx Instructions: take 1 tab daily for 3-5 days prn flares PO PRN; methotrexate sodium 25 mg/mL solution 12.5 mg SUBCUT .Q7days Qty: 10 1RF estradiol 0.5 mg tablet 0.5 mg PO DAILY melatonin 5 mg Tablet 5 mg PO BEDTIME PRN (Reason: Sleep) biotin 1 cap PO DAILY Discharge Orders: Discharge ED (Routine); Ordered 06/28/22 Ordered By: Juan Broussard Referrals: Nino Olson DO [Primary Care Provider] - Discharge Diet: Usual diet Discharge Activity: Increase activity as tolerated Patient Instructions: Shoulder Pain (ED) Activity Restrictions/Additional Instructions: Increase activity as tolerated. Ice or heat for further pain relief. Use medications as directed. Follow-up with primary care for further instruction. Return to ER for new concerns. Coding Level of Care Code ED Cassandra Developer for Stu Murillo
[2022-06-28 00:55] VITALS: RESP 18
[2022-06-28] MEDS: dexamethasone 10 mg/mL INJ IM (00:55)
[2022-06-28] MEDS: morphine 4 mg/mL SDV 1 mL IM (00:55)
[2022-06-28 01:03] VITALS: BP 157/93; PULSE 107; RESP 18; O2SAT 93
== END 2022-06-28 01:06 | disposition home or self-care (01) ==
PROVIDERS: Emergency Provider Nurse Practitioner Family; PCP Electrodiagnostic Medicine
DX: M77.8 Other enthesopathies, not elsewhere classified (principal); Z87.891 Personal history of nicotine dependence
CPT/HCPCS: 73030; 96372; 99284; J1100; J2270

== ENCOUNTER 2023-01-02 12:48 | Outpatient (CLI) | payer MEDICARE, SELFPAY ==
--- NOTE | 2023-01-02 13:39 | XR_ITS ---
WS: [id number] DEXA (DUAL ENERGY X-RAY ABSORPTIOMETRY) Bone mineral density was performed using a Scifinit[employer] machine. HISTORY: OSTEOPOROSIS COMPARISON: 01/15/2021 Lumbar spine BMD (L1-L4): 1.607 g/cm2 T score: 3.6 Z score: 5.3 Total hip BMD: Left: 0.828 g/cm2. T score: -1.4 Z score: 0.2 Right: 0.839 g/cm2. T score: -1.3 Z score: 0.3 10 year probability of a major osteoporotic fracture is 16.3%. Compared to the prior study from 01/15/2021. Lumbar spine bone mineral density has increased by 12.2%. Bilateral hips bone mineral density has decreased by 2.9%. XR/XR DEXA axial skeleton* [id number] IMPRESSION: OSTEOPENIA based upon the WHO classification for females. Significant increase in bone mineral density within the lumbar spine. Significant decrease in bone mineral density within the hips.
== END 2023-01-02 12:49 | disposition home or self-care (01) ==
PROVIDERS: PCP Electrodiagnostic Medicine; Visit Provider Internal Medicine Rheumatology
DX: M81.0 Age-related osteoporosis without current pathological fracture (principal); M85.80 Other specified disorders of bone density and structure, unspecified site
CPT/HCPCS: 77080

== ENCOUNTER 2023-04-26 14:27 | Outpatient (CLI) | payer MEDICARE, SELFPAY ==
--- NOTE | 2023-04-26 14:49 | MM_ITS ---
WS: [id number] BILATERAL 3D TOMOSYNTHESIS DIGITAL SCREENING MAMMOGRAPHY WITH CAD CLINICAL INFORMATION: SCREEN HISTORY: Screening mammogram. No current complaints. COMPARISON: 2021 TECHNIQUE: Bilateral CC and MLO views. FINDINGS: Scattered fibroglandular densities bilaterally. No suspicious focal mass, asymmetry, calcifications, or architectural distortion. No evidence of malignancy. Punctate and lucent centered calcifications. Stable clustered coarse calcifications. Vascular calcifications. MM/[id number] IMPRESSION: BI-RADS: 2-Benign FOLLOW UP: 1 Year Follow-up Recommend return to annual screening mammography.
== END 2023-04-26 14:28 | disposition home or self-care (01) ==
LOC: RAD 14:30
PROVIDERS: PCP Electrodiagnostic Medicine; Visit Provider Electrodiagnostic Medicine
DX: Z12.31 Encounter for screening mammogram for malignant neoplasm of breast (principal)
CPT/HCPCS: 77063; 77067

== ENCOUNTER 2023-06-16 13:26 | Outpatient (CLI) | payer MEDICARE, SELFPAY ==
--- NOTE | 2023-06-16 | MR_ITS ---
WS: [id number] MRI CERVICAL SPINE NONCONTRAST TECHNIQUE: Sagittal T1, T2 and STIR imaging. Axial T2, gradient, and fiesta imaging. CLINICAL INFORMATION: DISC DISPLACEMENT COMPARISON: None. FINDINGS: Straightening normal cervical lordosis. Moderate spondylitic changes with disc narrowing throughout t he cervical spine. Slight retrolisthesis C3 on C4 and C4 on C5. Cord signal is normal. Degenerative e ndplate type changes worse at C6-C7 C7-T1 and T2-3. C2-C3: Normal. C3-C4: Disc osteophyte complex with endplate ridging. Mild facet arthropathy. Mild bilateral bony for aminal narrowing. C4-C5: Disc osteophyte complex with endplate ridging. Mild central canal stenosis. Moderate facet art hropathy. Moderate LEFT greater than RIGHT bony foraminal narrowing. Moderate facet arthropathy. C5-C6: Disc osteophyte complex with endplate ridging. Mild central canal stenosis. Moderate facet art hropathy. Moderate LEFT greater than RIGHT bony foraminal narrowing. C6-C7: Disc osteophyte complex with endplate ridging. Moderate to severe LEFT bony foraminal narrowin g. Moderate facet arthropathy. C7-T1: Disc osteophyte complex with endplate ridging. Mild bilateral bony foraminal narrowing. Visualized brain stem structures: Normal. Prevertebral soft tissues: Normal. IMPRESSION: 1. Straightening of the normal cervical doses with moderate spondylitic changes. Slight retrolisthes is C3 on C4 and C4 on C5. 2. Mild central canal stenosis C3-C4 C4-C5 C5-C6. 3. Bony foraminal narrowing worse at bilateral C4-5 worse on the LEFT, LEFT C5-C6, and LEFT C6-C7. 4. Moderate facet arthropathy C4-C5 C5-C6.
== END 2023-06-16 13:27 | disposition home or self-care (01) ==
PROVIDERS: PCP Electrodiagnostic Medicine; Visit Provider Electrodiagnostic Medicine
DX: M50.20 Other cervical disc displacement, unspecified cervical region (principal); M48.02 Spinal stenosis, cervical region; M47.812 Spondylosis without myelopathy or radiculopathy, cervical region
CPT/HCPCS: 72141

== ENCOUNTER → 2023-08-01 09:22 | Outpatient (BNVA) | payer MEDICARE, SELFPAY | PROVIDERS: PCP Electrodiagnostic Medicine; Visit Provider Physician Assistant | DX: M47.812 Spondylosis without myelopathy or radiculopathy, cervical region (principal); M50.30 Other cervical disc degeneration, unspecified cervical region | CPT/HCPCS: 72050; 99203 ==

== ENCOUNTER 2024-05-02 09:02 | Outpatient (CLI) | payer MEDICARE, SELFPAY ==
--- NOTE | 2024-05-02 09:08 | MM_ITS ---
WS: [id number] SCREENING DIGITAL BREAST TOMOSYNTHESIS MAMMOGRAM WITH CAD HISTORY: SCREENING COMPARISON: 04/26/2023, 03/11/2022 Bilateral CC and MLO with tomosynthesis and synthetic mammography submitted. Computer aided detection analyzed. Breast composition: The breasts are heterogeneously dense, which may obscure small masses. Increasing asymmetry and several small well-circumscribed masses in the anterior LEFT breast just posterior to the nipple. Due to the increasing asymmetry recommend additional imaging at this time. There is a sta ble 5 mm mass in the central RIGHT breast. Benign calcifications in each breast. MM/[place] [id number] IMPRESSION: BI-RADS: 0-Incomplete: Need additional imaging evaluation FOLLOW UP: Need Additional Imaging LEFT breast: Spot compression views (CC and MLO). True ML. Ultrasound to follow if abnormality persists.
== END 2024-05-02 09:03 | disposition home or self-care (01) ==
PROVIDERS: PCP Electrodiagnostic Medicine; Visit Provider Electrodiagnostic Medicine
DX: Z12.31 Encounter for screening mammogram for malignant neoplasm of breast (principal)
CPT/HCPCS: 77063; 77067

== ENCOUNTER 2024-06-25 10:22 | Outpatient (CLI) | payer MEDICARE, SELFPAY ==
--- NOTE | 2024-06-25 10:27 | MM_ITS ---
WS: [id number] ADDITIONAL VIEWS LEFT MAMMOGRAM WITH DIGITAL BREAST TOMOSYNTHESIS. HISTORY: L BREAST MASS COMPARISON: 05/02/2024, 04/26/2023, 03/11/2022 Spot compression views LEFT breast in CC, MLO projections and true ML submitted with digital breast t omosynthesis and SM. Breast composition: There are scattered areas of fibroglandular density. The fullness and asymmetry posterior to the LEFT nipple in the anterior breast resolves with addition al imaging. There is no residual increased soft tissue. Benign calcifications in the anterior breast. Ultrasound not necessary. MM/MM diag LT tomosynthesis [id number] IMPRESSION: BI-RADS: 2 - Benign. FOLLOW UP: 1 Year Follow-up
== END 2024-06-25 10:23 | disposition home or self-care (01) ==
LOC: RAD 10:23
PROVIDERS: PCP Electrodiagnostic Medicine; Visit Provider Electrodiagnostic Medicine
DX: R92.323 Mammographic fibroglandular density, bilateral breasts (principal); R92.1 Mammographic calcification found on diagnostic imaging of breast
CPT/HCPCS: 77061; G0279

== ENCOUNTER 2024-07-20 14:53 | Emergency (ER) | payer MEDICARE, SELFPAY ==
[2024-07-20 15:08] VITALS: BP 148/74; PULSE 76; RESP 17; TEMP 36.5; O2SAT 98; BMI 24.1
--- NOTE | 2024-07-20 15:41 | ED_ITS ---
HPI - Wound/Laceration 2 General: Chief Complaint: Wound/Laceration Stated Complaint: fell down, wond on mouth Time Seen by Provider: 07/20/24 15:22 Source: patient Mode of arrival: ambulatory Limitations: no limitations History of Present Illness: 73-year-old female states she is running leaves and was walking her yard tripped and fell she did hit her face on the ground has a laceration to her left upper lip. She denies any pain denies any dental injuries denies hitting her head and loss conscious denies any neck pain. Associated symptoms: Denies chills, fever(s), nausea or vomiting Related Data Home Medications Medication Instructions Recorded Confirmed amitriptyline 50 mg tablet 50 mg PO BEDTIME 10/21/19 08/01/23 cholecalciferol (vitamin D3) 75 3,000 unit PO DAILY 10/21/19 08/01/23 mcg (3,000 unit) tablet multivitamin 1 tab PO QAM 10/21/19 08/01/23 vitamin B complex 1 tab PO DAILY 10/21/19 08/01/23 folic acid 800 mcg tablet 800 mg PO BID 01/23/20 08/01/23 biotin 1 cap PO DAILY 04/24/20 08/01/23 estradiol 0.5 mg tablet 0.5 mg PO DAILY 04/24/20 08/01/23 melatonin 5 mg tablet 5 mg PO BEDTIME PRN Sleep 04/24/20 08/01/23 prednisone 10 mg tablet See Rx Instructions PO .COMPLEX 06/29/20 08/01/23 PRN joint pain diltiazem HCl 240 mg 240 mg PO DAILY 10/20/20 08/01/23 capsule,extended release 24 hr (Cardizem CD) losartan 25 mg tablet 25 mg PO DAILY 10/20/20 08/01/23 Previous Rx's Medication Instructions Recorded etanercept 50 mg/mL (1 mL) 50 mg SUBCUT Q7D #4 mL 07/14/20 subcutaneous pen injector (Enmary Hernández) methotrexate sodium 25 mg/mL 12.5 mg (0.5 mL) SUBCUT .Q7days 07/21/20 injection solution #10 mL hydrocortisone 2.5 % topical cream 1 applic topical BID #30 grams 10/20/20 hydrocodone 5 mg-acetaminophen 325 1 tab PO Q6H PRN Pain #15 tabs 06/28/22 mg tablet TRACTION NECK BRACE #1 ea 08/01/23 Allergies Allergy/AdvReac Type Severity Reaction Status Date / Time minoxidil Allergy B/p Verified 08/01/23 09:35 increases leflunomide AdvReac Severe ER visit Verified 08/01/23 09:35 due to HTN Review of Systems 2 Const: Denies: fever(s), chills, body aches or change in appetite ENMT: Denies: dental pain Card: Denies: chest pain Resp: Denies: dyspnea GI: Denies: abdominal pain, nausea, vomiting or diarrhea Musc: Denies: neck pain or back pain Skin/Breast: Denies: rash Neuro: Denies: headache(s) PFSH ED 2 PFSH: Medical History History of nonmelanoma skin cancer Degenerative joint disease (DJD) of lumbar spine Recurrent UTI High risk medication use Immunization counseling Hepatitis C antibody test positive Surgical History History of hysterectomy with bilateral oophorectomy History of cholecystectomy History of thyroid surgery Family History Other CAD (coronary artery disease) Diabetes Hypertension Rheumatoid arthritis Denies family history of Chronic kidney disease (CKD) Systemic lupus erythematosus (SLE) in adult Lung disease Cancer Stroke Social History Smoking and tobacco/nicotine status: former use of tobacco/nicotine Quit status (tobacco/nicotine): has quit using Year quit tobacco: 2007 Alcohol intake: current Alcohol intake frequency: 0-2 Drinks per Day Alcohol type: wine Substance/Drug Use: unknown Lives independently: No Marital status: Current occupational status: employed Physical Exam 2 Const: COMMON NORMALS: no acute distress, patient oriented x3 and healthy appearing HENMT: COMMON NORMALS: normocephalic and atraumatic HEAD & SCALP: n ormocephalic and atraumatic NOSE IMAGE: 1. 1 cm laceration to lip does not involve the vermilion border Eye: COMMON NORMALS: conjunctivae normal CONJUNCTIVA: Yes conjunctivae normal Neck/C-Spine: COMMON NORMALS: full ROM and supple Chest: COMMONS NORMALS: normal inspection of the chest Resp: COMMON NORMALS: normal respiratory effort Cardio: COMMON NORMALS: regular rate RATE: regular rate Extremity: COMMON NORMALS: normal to inspection and full ROM Neuro: COMMON NORMALS: patient oriented x3, moves all extremities and no focal motor deficits Psych: COMMON NORMALS: mental status grossly normal, Normal thought process present and cooperative THOUGHT PROCESS: Normal thought process present Skin: COMMON NORMALS: no rashes or lesions noted and no wounds GENERAL SKIN EXAM: no rashes or lesions noted Procedures Laceration Laceration 1: Site: lip Side (If applicable): left Size (cm): 1 Description: linear and involves jill border Local Anesthetic: lidocaine 1% Amount of anesthesia used (mL): 4 Pre-repair: wound explored and irrigated extensively Skin layer closed with: nylon Size (cm): 5-0 Number of sutures: 4 Technique: simple, interrupted Course 2 Vital Signs: Vital signs: Vital Signs Temperature 97.7 F 07/20/24 15:08 Pulse Rate 76 07/20/24 15:08 Respiratory Rate 17 07/20/24 15:08 Blood Pressure 148/74 07/20/24 15:08 Pulse Oximetry 98 07/20/24 15:08 Oxygen Delivery Me thod Room Air 07/20/24 15:08 MDM - Wound/Laceration Medical Decision Making Patient presents here with a lip laceration did repair the laceration she is to have the sutures removed in 7 days follow-up with PCP return here she understands agrees to plan Medical Records I reviewed the patient's medical records. No radiology studies performed this visit Discharge Plan Discharge Patient Disposition: Home Clinical Impression: Laceration of lip Condition: Stable Prescriptions: No Action diltiazem HCl [Cardizem CD] 240 mg capsule,extended release 24hr 240 mg PO DAILY losartan 25 mg tablet 25 mg PO DAILY hydrocortisone 2.5 % cream 1 applic topical BID Qty: 30 1RF Rx Instructions: Apply to face BID x 1-2 weeks. May use on hands BID 2 wks/mo prn vitamin B complex Tablet 1 tab PO DAILY amitriptyline 50 mg tablet 50 mg PO BEDTIME multivitamin Tablet 1 tab PO QAM cholecalciferol (vitamin D3) 3,000 unit tablet 3,000 unit PO DAILY folic acid 800 mcg tablet 800 mg PO BID Enbrel SureClick 50 mg/mL (1 mL) pen injector 50 mg SUBCUT Q7D Qty: 4 3RF Rx Instructions: pt states she takes on sundays prednisone 10 mg tablet See Rx Instructions PO .COMPLEX PRN (Reason: joint pain) Rx Instructions: take 1 tab daily for 3-5 days prn flares PO PRN; (DME) TRACTION NECK BRACE See Rx Instructions .Route .MEDSUPPLY Qty: 1 0RF Rx Instructions: As directed methotrexate sodium 25 mg/mL solution 12.5 mg SUBCUT .Q7days Qty: 10 1RF estradiol 0.5 mg tablet 0.5 mg PO DAILY melatonin 5 mg Tablet 5 mg PO BEDTIME PRN (Reason: Sleep) biotin 1 cap PO DAILY hydrocodone-acetaminophen 5-325 mg tablet 1 tab PO Q6H PRN (Reason: Pain) Qty: 15 0RF Rx Instructions: pt states she also has 10-325mg from 5 years ago-pt states she takes only prn Discharge Orders: Discharge ED (Routine); Ordered 07/20/24 Ordered By: Karen Da Silva Referrals: Nino Olson DO [Primary Care Provider] - 4-7 days Patient Instructions: Care For Your Stitches (ED), Laceration (ED) Activity Restrictions/Additional Instructions: suture removal in 7 days Coding Level of Care Code ED Brick Baker for Stu Murillo
[2024-07-20 16:12] VITALS: BP 135/80; PULSE 82; O2SAT 98
== END 2024-07-20 16:13 | disposition home or self-care (01) ==
PROVIDERS: Emergency Provider Emergency Medicine; PCP Electrodiagnostic Medicine
DX: S01.511A Laceration without foreign body of lip, initial encounter (principal); Z87.891 Personal history of nicotine dependence; Z86.19 Personal history of other infectious and parasitic diseases; W01.0XXA Fall on same level from slipping, tripping and stumbling without subsequent striking against object, initial encounter
CPT/HCPCS: 12011; 99282

== ENCOUNTER 2024-07-27 10:01 | Emergency (ER) | payer MEDICARE, SELFPAY ==
[2024-07-27 10:06] VITALS: BP 139/64; PULSE 82; RESP 18; TEMP 36.7; O2SAT 91
--- NOTE | 2024-07-27 10:19 | ED_ITS ---
HPI - Recheck/Abnormal Lab/Rx General: Chief Complaint: Recheck/Abnormal Lab/Rx Stated Complaint: remove stitches Time Seen by Provider: 07/27/24 10:10 Source: patient Mode of arrival: ambulatory Limitations: no limitations History of Present Illness: 73-year-old female seen here a week ago after she had fell and injured her lip had 4 sutures placed patient is here for suture removal she has no other complaints at this time wound has been healing well. Related Data Home Medications Medication Instructions Recorded Confirmed amitriptyline 50 mg tablet 50 mg PO BEDTIME 10/21/19 08/01/23 cholecalciferol (vitamin D3) 75 3,000 unit PO DAILY 10/21/19 08/01/23 mcg (3,000 unit) tablet multivitamin 1 tab PO QAM 10/21/19 08/01/23 vitamin B complex 1 tab PO DAILY 10/21/19 08/01/23 folic acid 800 mcg tablet 800 mg PO BID 01/23/20 08/01/23 biotin 1 cap PO DAILY 04/24/20 08/01/23 estradiol 0.5 mg tablet 0.5 mg PO DAILY 04/24/20 08/01/23 melatonin 5 mg tablet 5 mg PO BEDTIME PRN Sleep 04/24/20 08/01/23 prednisone 10 mg tablet See Rx Instructions PO .COMPLEX 06/29/20 08/01/23 PRN joint pain diltiazem HCl 240 mg 240 mg PO DAILY 10/20/20 08/01/23 capsule,extended release 24 hr (Cardizem CD) losartan 25 mg tablet 25 mg PO DAILY 10/20/20 08/01/23 Previous Rx's Medication Instructions Recorded etanercept 50 mg/mL (1 mL) 50 mg SUBCUT Q7D #4 mL 07/14/20 subcutaneous pen injector (Enbrel [employer]) methotrexate sodium 25 mg/mL 12.5 mg (0.5 mL) SUBCUT .Q7days 07/21/20 injection solution #10 mL hydrocortisone 2.5 % topical cream 1 applic topical BID #30 grams 10/20/20 hydrocodone 5 mg-acetaminophen 325 1 tab PO Q6H PRN Pain #15 tabs 06/28/22 mg tablet TRACTION NECK BRACE #1 ea 08/01/23 Allergies Allergy/AdvReac Type Severity Reaction Status Date / Time minoxidil Allergy B/p Verified 08/01/23 09:35 increases leflunomide AdvReac Severe ER visit Verified 08/01/23 09:35 due to HTN Review of Systems Const: Denies: fever(s) ENMT: Denies: mouth pain GI: Denies: vomiting Skin/Breast: Denies: rash or erythema PFSH ED PFSH: Medical History History of nonmelanoma skin cancer Degenerative joint disease (DJD) of lumbar spine Recurrent UTI High risk medication use Immunization counseling Hepatitis C antibody test positive Surgical History History of hysterectomy with bilateral oophorectomy History of cholecystectomy History of thyroid surgery Family History Other CAD (coronary artery disease) Diabetes Hypertension Rheumatoid arthritis Denies family history of Chronic kidney disease (CKD) Systemic lupus erythematosus (SLE) in adult Lung disease Cancer Stroke Social History Smoking and tobacco/nicotine status: former use of tobacco/nicotine Quit status (tobacco/nicotine): has quit using Year quit tobacco: 2007 Alcohol intake: current Alcohol intake frequency: 0-2 Drinks per Day Alcohol type: wine Substance/Drug Use: unknown Lives independently: No Marital status: Current occupational status: employed Physical Exam Const: COMMON NORMALS: no acute distress HENMT: COMMON NORMALS: atraumatic HEAD & SCALP: atraumatic OTHER: 4 sutures placed upper lip wounds clean dry intact Chest: COMMONS NORMALS: normal inspection of the chest Resp: COMMON NORMALS: normal respiratory effort Extremity: COMMON NORMALS: normal to inspection Course Vital Signs: Vital signs: Vital Signs Temperature 98.1 F 07/27/24 10:06 Pulse Rate 82 07/27/24 10:06 Respiratory Rate 18 07/27/24 10:06 Blood Pressure 139/64 07/27/24 10:06 Pulse Oximetry 91 07/27/24 10:06 Oxygen Delivery Me thod Room Air 07/27/24 10:06 MDM - Recheck/Abnormal Lab/Rx Medical Decision Making Patient presents here for suture removal did remove sutures wounds clean dry intact she is stable for discharge. Medical Records I reviewed the patient's medical records. No radiology studies performed this visit Discharge Plan Discharge Patient Disposition: Home Clinical Impression: Encounter for removal of sutures Condition: Stable Prescriptions: No Action diltiazem HCl [Cardizem CD] 240 mg capsule,extended release 24hr 240 mg PO DAILY losartan 25 mg tablet 25 mg PO DAILY hydrocortisone 2.5 % cream 1 applic topical BID Qty: 30 1RF Rx Instructions: Apply to face BID x 1-2 weeks. May use on hands BID 2 wks/mo prn vitamin B complex Tablet 1 tab PO DAILY amitriptyline 50 mg tablet 50 mg PO BEDTIME multivitamin Tablet 1 tab PO QAM cholecalciferol (vitamin D3) 3,000 unit tablet 3,000 unit PO DAILY folic acid 800 mcg tablet 800 mg PO BID Enbrel SureClick 50 mg/mL (1 mL) pen injector 50 mg SUBCUT Q7D Qty: 4 3RF Rx Instructions: pt states she takes on sundays prednisone 10 mg tablet See Rx Instructions PO .COMPLEX PRN (Reason: joint pain) Rx Instructions: take 1 tab daily for 3-5 days prn flares PO PRN; (DME) TRACTION NECK BRACE See Rx Instructions .Route .MEDSUPPLY Qty: 1 0RF Rx Instructions: As directed methotrexate sodium 25 mg/mL solution 12.5 mg SUBCUT .Q7days Qty: 10 1RF estradiol 0.5 mg tablet 0.5 mg PO DAILY melatonin 5 mg Tablet 5 mg PO BEDTIME PRN (Reason: Sleep) biotin 1 cap PO DAILY hydrocodone-acetaminophen 5-325 mg tablet 1 tab PO Q6H PRN (Reason: Pain) Qty: 15 0RF Rx Instructions: pt states she also has 10-325mg from 5 years ago-pt states she takes only prn Discharge Orders: Discharge ED (Routine); Ordered 07/27/24 Ordered By: Karen Da Silva Referrals: Nino Olson DO [Primary Care Provider] - 4-7 days Discharge Diet: Advance as tolerated Discharge Activity: Resume usual activity Patient Instructions: Stitches Removal (ED) Coding Level of Care Code ED Mud Mixer for Stu Murillo
[2024-07-27 10:24] VITALS: BP 139/84; PULSE 77; O2SAT 90
== END 2024-07-27 10:25 | disposition home or self-care (01) ==
PROVIDERS: Emergency Provider Emergency Medicine; PCP Electrodiagnostic Medicine
DX: Z48.02 Encounter for removal of sutures (principal)
CPT/HCPCS: 99281

== ENCOUNTER 2024-07-30 19:39 | Emergency (ER) | payer MEDICARE, SELFPAY ==
[2024-07-30 20:00] VITALS: BP 148/82; PULSE 114; RESP 16; TEMP 37.3; O2SAT 96
--- NOTE | 2024-07-30 20:19 | XRR_ITS ---
PROCEDURE INFORMATION: Exam: XR Chest Exam date and time: 07/30/2024 8:31 PM Age: 73 years old Clinical indication: Other: AMS weakness TECHNIQUE: Imaging protocol: Radiologic exam of the chest. Views: 1 view. COMPARISON: CR XR chest 2V* [id number] 10/14/2020 12:23 PM FINDINGS: Lungs: Unremarkable. No consolidation. Pleural spaces: Unremarkable. No pleural effusion. No pneumothorax. Heart/Mediastinum: Unremarkable. No cardiomegaly. Bones/joints: Unremarkable. XR/XR chest 1V portable [id number] IMPRESSION: No acute findings.
[2024-07-30 21:06] LABS: Basophils % 0.2 %; Hematocrit 38.8 % (36-47); Lymphocytes # 0.8 10^3/uL (0.8-4.8); Lymphocytes % 6.7 %; Mean Corpuscular HGB Conc 33.8 g/dL (30-55); Mean Corpuscular Hemoglobin 32.9 pg (27-33); Mean Corpuscular Volume 97.5 fl (85-98); Mean Platelet Volume 9.9 fL (7.4-10.4); Monocytes # 1.3 10^3/uL (0.2-0.9); Monocytes % 10.8 %; Neutrophils # 9.91 10^3/uL (1.8-7.7); Neutrophils % 81.7 %; Nucleated Red Blood Cells % 0 %; Platelet Count 203 10^3/cmm (157-399); Red Blood Count 3.98 10^6/uL (3.85-5.65); Red Cell Distribution Width 12.3 % (12.1-15.1); White Blood Count 12.12 10^3/uL (3.29-11.43)
[2024-07-30 21:34] LABS: Alanine Aminotransferase 37 U/L (0-33); Alkaline Phosphatase 86 U/L (35-105); Anion Gap 16.7 (5-19); Aspartate Amino Transferase 57 U/L (0-32); Blood Urea Nitrogen 14 mg/dL (8-23); Calcium 8.8 mg/dL (8.5-10.5); Carbon Dioxide 23 mmol/L (22-29); Chloride 96 mmol/L (98-107); Creatinine Clr Calc Pharmacy 51.1387; Globulin 3.9 g/dL (1.3-4.6); Glucose 120 mg/dL (65-115); Osmolality Calculated 276 mOsm/kg (285-295); Potassium 3.7 mmol/L (3.5-5.1); Sodium 132 mmol/L (136-145); Thyroid Stimulating Hormone 1.44 uIU/mL (0.27-4.20); Total Bilirubin 0.8 mg/dL (0.15-1.2); Total Protein 7.9 g/dL (6.6-8.7)
--- NOTE | 2024-07-30 21:44 | ECG_ITS ---
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 Measurements Intervals [place] Rate: 105 P: 55 ND: 175 QRS: -24 QRSD: 96 T: 60 QT: 332 QTc: 440 Interpretive Statements SINUS TACHYCARDIA POSSIBLE LEFT ATRIAL ENLARGEMENT [-0.1mV P-WAVE IN V1/V2] Incomplete left bundle branch block SEPTAL MYOCARDIAL INFARCTION , OF INDETERMINATE AGE [40+ ms Q WAVE IN V1/V2] No previous ECG available for comparison Electronically Signed On 07-31-2024 16:59:06 CDT by Ariane Nicole M.D. [id number]
[2024-07-30 21:48] VITALS: BP 161/85; PULSE 107; O2SAT 97
--- NOTE | 2024-07-30 21:55 | CTR_ITS ---
PROCEDURE INFORMATION: Exam: CT Cervical Spine Without Contrast Exam date and time: 07/30/2024 10:07 PM Age: 73 years old Clinical indication: Injury or trauma; Fall; Blunt trauma; Additional info: Fall, neck pain TECHNIQUE: Imaging protocol: Computed tomography of the cervical spine without contrast. Radiation optimization: All CT scans at this facility use at least one of these dose optimization techniques: automated exposure control; mA and/or kV adjustment per patient size (includes targeted exams where dose is matched to clinical indication); or iterative reconstruction. COMPARISON: MR cervical spin wo con* [id number] 06/16/2023 1:53 PM RADIATION DOSE METRICS: Total DLP (mGy-cm): 145.17 FINDINGS: Bones/joints: Retrolisthesis of C3 relative to C4 of 2.6 mm appears chronic and degenerative. C2-C3: No significant disc bulge or herniation. No severe spinal canal stenosis. No significant neural foraminal narrowing. C3-C4: No significant disc bulge or herniation. No severe spinal canal stenosis. No significant neural foraminal narrowing. C4-C5: No significant disc bulge or herniation. No severe spinal canal stenosis. No significant neural foraminal narrowing. C5-C6: No significant disc bulge or herniation. No severe spinal canal stenosis. No significant neural foraminal narrowing. C6-C7: No significant disc bulge or herniation. No severe spinal canal stenosis. No significant neural foraminal narrowing. C7-T1: No significant disc bulge or herniation. No severe spinal canal stenosis. No significant neural foraminal narrowing. Lungs: Emphysematous changes in the apical lung miranda. Vasculature: Minimal carotid artery atherosclerotic calcification. Soft tissues: Unremarkable. CT/CT cervical spin wo con* [id number] IMPRESSION: 1. Negative for fracture or dislocation. 2. Retrolisthesis of C3 relative to C4 of 2.6 mm appears chronic and degenerative. 3. Minimal carotid artery atherosclerotic calcification. 4. Emphysematous changes in the apical lung miranda.
--- NOTE | 2024-07-30 21:55 | CTR_ITS ---
PROCEDURE INFORMATION: Exam: CT Head Without Contrast Exam date and time: 07/30/2024 9:56 PM Age: 73 years old Clinical indication: Injury or trauma; Fall; Blunt trauma (contusions or hematomas); Additional info: Fall, head injury TECHNIQUE: Imaging protocol: Computed tomography of the head without contrast. Radiation optimization: All CT scans at this facility use at least one of these dose optimization techniques: automated exposure control; mA and/or kV adjustment per patient size (includes targeted exams where dose is matched to clinical indication); or iterative reconstruction. COMPARISON: MR cervical spin wo con* [id number] 06/16/2023 1:53 PM RADIATION DOSE METRICS: Total DLP (mGy-cm): 1076.7 FINDINGS: Brain: Mild diffuse white matter disease likely reflecting chronic microvascular ischemic changes. Cerebral ventricles: No ventriculomegaly. Paranasal sinuses: Visualized sinuses are unremarkable. No fluid levels. Mastoid air cells: Visualized mastoid air cells are well aerated. Bones: Unremarkable. No acute fracture. Soft tissues: Unremarkable. CT/CT head wo con* [id number] IMPRESSION: Negative for intracranial hemorrhage or mass effect.
--- NOTE | 2024-07-30 22:05 | XRR_ITS ---
PROCEDURE INFORMATION: Exam: XR Right Shoulder Exam date and time: 07/30/2024 10:16 PM Age: 73 years old Clinical indication: Pain; Shoulder; Right; Additional info: Shoulder pain TECHNIQUE: Imaging protocol: Radiologic exam of the right shoulder. Views: 1 view. COMPARISON: CR (CHEST, ) 07/30/2024 8:31 PM FINDINGS: Bones/joints: Normal. Soft tissues: Normal. XR/XR shoulder RT 1V [id number] IMPRESSION: No acute findings.
--- NOTE | 2024-07-30 22:05 | XRR_ITS ---
PROCEDURE INFORMATION: Exam: XR Left Shoulder Exam date and time: 07/30/2024 10:14 PM Age: 73 years old Clinical indication: Pain; Shoulder; Left; Additional info: Shoulder pain TECHNIQUE: Imaging protocol: Radiologic exam of the left shoulder. Views: 2 or more views. COMPARISON: CR (CHEST, ) 07/30/2024 8:31 PM FINDINGS: Bones/joints: Normal. Soft tissues: Normal. XR/XR shoulder LT 1V [id number] IMPRESSION: No acute findings.
--- NOTE | 2024-07-30 22:05 | XRR_ITS ---
PROCEDURE INFORMATION: Exam: XR Pelvis Exam date and time: 07/30/2024 10:18 PM Age: 73 years old Clinical indication: Injury or trauma; Fall; Blunt trauma (contusions or hematomas); Does not apply; Pelvic region; Additional info: Falls, hip and pelvic pain TECHNIQUE: Imaging protocol: Radiologic exam of the pelvis. Views: 1 or 2 view. COMPARISON: MR lumbar spine wo con* [id number] 07/06/2020 3:15 PM FINDINGS: Bones/joints: Lumbar spine degenerative disc space disease. Soft tissues: Unremarkable. XR/XR pelvis 1-2V* [id number] IMPRESSION: Negative for fracture or dislocation
--- NOTE | 2024-07-30 22:05 | ED_ITS ---
HPI - Weakness 2 General: Chief complaint: Weakness Stated complaint: Fell\Shoulders\Hips\Having Hallucination Time Seen by Provider: 07/30/24 21:45 History of Present Illness: 73-year-old female who presents to the e mergency room with a neighbor with concerns that she may be hallucinating and she might of had some slurred speech earlier today. She did have a fall earlier in the week and has had multiple falls. She been seen for the fall. She has a swollen lip that has been addressed. She seems normal on exam here but neighbor says that when she was out in the waiting room she saw a bug that was not there. He was complaining of bilateral shoulder pain and bilateral hip pain. Also bilateral knee pain. She does have some bruises from the following. Review of Systems 2 Narrative: Constitutional symptoms: Negative except as documented in HPI. Skin symptoms: Negative except as documented in HPI. Eye symptoms: Negative except as documented in HPI. ENMT symptoms: Negative except as documented in HPI. Respiratory symptoms: Negative except as documented in HPI. Cardiovascular symptoms: Negative except as documented in HPI. Gastrointestinal symptoms: Negative except as documented in HPI. Genitourinary symptoms: Negative except as documented in HPI. Musculoskeletal symptoms: Negative except as documented in HPI. Neurologic symptoms: Negative except as documented in HPI. Psychiatric symptoms: Negative except as documented in HPI. Endocrine symptoms: Negative except as documented in HPI. PFSH ED 2 PFSH: Medical History History of nonmelanoma skin cancer Degenerative joint disease (DJD) of lumbar spine Recurrent UTI High risk medication use Immunization counseling Hepatitis C antibody test positive Surgical History History of hysterectomy with bilateral oophorectomy History of cholecystectomy History of thyroid surgery Family History Other CAD (coronary artery disease) Diabetes Hypertension Rheumatoid arthritis Denies family history of Chronic kidney disease (CKD) Systemic lupus erythematosus (SLE) in adult Lung disease Cancer Stroke Social History Smoking and tobacco/nicotine status: former use of tobacco/nicotine Quit status (tobacco/nicotine): has quit using Year quit tobacco: 2007 Alcohol intake: current Alcohol intake frequency: 0-2 Drinks per Day Alcohol type: wine Substance/Drug Use: unknown Lives independently: No Marital status: Current occupational status: employed Physical Exam 2 Narrative: EXAM NARRATIVE: General: Alert, no acute distress. Skin: Warm, dry. Head: Normocephalic, bruising to the upper lip. Neck: Supple, trachea midline. Eye: Extraocular movements are intact. Ears, nose, mouth and throat: mucosa moist. Cardiovascular: Regular, Normal peripheral perfusion. Respiratory: Lungs are clear to auscultation, respirations are non-labored, breath sounds are equal, Symmetrical chest wall expansion. Gastrointestinal: Soft, Nontender, Non distended Musculoskeletal: Normal ROM, no deformity. Some bruising to the knees bilaterally Neurological: Alert and oriented, No focal neurological deficit observed. Psychiatric: Cooperative, appropriate mood & affect. Course 2 Vital Signs: Vital signs: Vital Signs Temperature 99.2 F 07/30/24 20:00 Pulse Rate 107 H 07/30/24 21:48 Respiratory Rate 16 07/30/24 20:00 Blood Pressure 161/85 07/30/24 21:48 Pulse Oximetry 97 07/30/24 21:48 Oxygen Delivery Me thod Room Air 07/30/24 21:48 MDM - Weakness Medical Decision Making Medical decision making: Differential diagnosis for patient presenting with generalized weakness including but not limited to and based on the above HPI, review of systems and physical exam: Sepsis. Dehydration. Renal failure. Electrolyte abnormalities. Anemia. Congestive heart failure. Hypotension. Coronary syndrome. Hepatitis. Cirrhosis. Infections such as pneumonia, urinary tract infection, [place]ne illness, Cellulitis, Viral infections including influenza and Covid-19. Workup: labwork and lab/exam driven imaging ordered to evaluate, rule in and rule out above pathologies. Chest x-ray: No acute process. No infiltrate. No pneumothorax. This was reviewed and interpreted by myself the ER physician. X-ray of the shoulders bilaterally: No acute process. No fractures. No dislocations. This was reviewed and interpreted by myself the emergency room physician. I also reviewed the radiology report. X-ray of the pelvis: No acute process. No fractures. No dislocations. This was reviewed and interpreted by myself the emergency room physician. I also reviewed the radiology report. CT head: No acute intracranial process. no intracranial hemorrhage, no evidence of infarct. no evidence of acute fracture.This was reviewed and interpreted by myself the ER physician. CT of the cervical spine: No fracture. Good alignment. No step-offs. This was reviewed and interpreted by myself the emergency room physician. I also reviewed the radiologist report. Lab Review: Laboratory results were reviewed and interpreted by myself the emergency room physician. Lab work is fairly unremarkable. Mild leukocytosis with a white count of 12. Hemoglobin normal at 13. No renal failure with a BUN and creatinine of 14 and 0.6. Urinalysis is negative for infection. She is positive for opiates. I reviewed the patient's medical record. Reexamination: Patient remained stable. No increased work of breathing. No altered mental status. No focal motor deficits. She has had no obvious focal motor deficits or hallucinations while here. She has been alert and oriented. I did discuss that her use of opiate pain medications at home may be increasing her likelihood for falls making her off balance. Assessment and plan: Falls Knee contusions Shoulder pain Chronic narcotic use - Discharged home - Discussed findings and plan with patient. Answered any questions. - All laboratory values were reviewed and interpreted personally by myself, the ER physician - All imaging was reviewed and interpreted personally by myself, the ER physician. - Evaluation and treatment of this problem were appropriate in the emergency setting Lab Data 07/30/24 20:54 07/30/24 20:54 Radiology Impressions Chest X-Ray 07/30/24 20:19 IMPRESSION: No acute findings. Cervical Spine CT 07/30/24 21:55 IMPRESSION: 1. Negative for fracture or dislocation. 2. Retrolisthesis of C3 relative to C4 of 2.6 mm appears chronic and degenerative. 3. Minimal carotid artery atherosclerotic calcification. 4. Emphysematous changes in the apical lung miranda. Head CT 07/30/24 21:55 IMPRESSION: Negative for intracranial hemorrhage or mass effect. Pelvis X-Ray 07/30/24 22:05 IMPRESSION: Negative for fracture or dislocation Shoulder X-Ray 07/30/24 22:05 IMPRESSION: No acute findings. Laboratory Results WBC 12.12 10^3/uL (3.29-11.43) H 07/30/24 20:54 RBC 3.98 10^6/uL (3.85-5.65) 07/30/24 20:54 Hgb 13.10 g/dL (11.27-16.99) 07/30/24 20:54 Hct 38.8 % (36-47) 07/30/24 20:54 MCV 97.5 fl (85-98) 07/30/24 20:54 MCH 32.9 pg (27-33) 07/30/24 20:54 MCHC 33.8 g/dL (30-55) 07/30/24 20:54 RDW 12.3 % (12.1-15.1) 07/30/24 20:54 Plt Count 203 10^3/cmm (157-399) 07/30/24 20:54 MPV 9.9 fL (7.4-10.4) 07/30/24 20:54 Neut % (Auto) 81.7 % 07/30/24 20:54 Lymph % (Auto) 6.7 % 07/30/24 20:54 Gilchrist % (Auto) 10.8 % 07/30/24 20:54 Eos % (Auto) 0.0 % 07/30/24 20:54 Baso % (Auto) 0.2 % 07/30/24 20:54 Neut # (Auto) 9.91 10^3/uL (1.8-7.7) H 07/30/24 20:54 Lymph # (Auto) 0.8 10^3/uL (0.8-4.8) 07/30/24 20:54 Gilchrist # (Auto) 1.3 10^3/uL (0.2-0.9) H 07/30/24 20:54 Eos # (Auto) 0.0 10^3/uL (0.0-0.8) 07/30/24 20:54 Baso # (Auto) 0.0 10^3/uL (0.0-0.1) 07/30/24 20:54 Nucleated RBC % (auto) 0 % 07/30/24 20:54 Nucleated RBCs # 0.0 /100WBC 07/30/24 20:54 Sodium 132 mmol/L (136-145) L 07/30/24 20:54 Potassium 3.7 mmol/L (3.5-5.1) 07/30/24 20:54 Chloride 96 mmol/L (98-107) L 07/30/24 20:54 Carbon Dioxide 23 mmol/L (22-29) 07/30/24 20:54 Anion Gap 16.7 (5-19) 07/30/24 20:54 BUN 14 mg/dL (8-23) 07/30/24 20:54 Creatinine 0.6 mg/dL (0.5-0.9) 07/30/24 20:54 GFR Calculation Not Reportable 07/30/24 20:54 Glucose 120 mg/dL (65-115) H 07/30/24 20:54 Calculated Osmolality 276 mOsm/kg (285-295) L 07/30/24 20:54 Calcium 8.8 mg/dL (8.5-10.5) 07/30/24 20:54 Magnesium 2.0 mg/dL (1.7-2.3) 07/30/24 20:54 Total Bilirubin 0.8 mg/dL (0.15-1.2) 07/30/24 20:54 AST 57 U/L (0-32) H 07/30/24 20:54 ALT 37 U/L (0-33) H 07/30/24 20:54 Alkaline Phosphatase 86 U/L (35-105) 07/30/24 20:54 Total Protein 7.9 g/dL (6.6-8.7) 07/30/24 20:54 Albumin 4.0 g/dL (3.5-5.2) 07/30/24 20:54 Globulin 3.9 g/dL (1.3-4.6) 07/30/24 20:54 TSH 1.44 uIU/mL (0.27-4.20) 07/30/24 20:54 Urine Color Dark yellow (Yellow) A 07/30/24:30 Urine Appearance Clear (CLEAR) 07/30/24 22: Urine pH 6.5 (5-7) 07/30/24 22:30 Ur Specific [place] 1.021 (1.005-1.030) 07/30/24: Urine Protein 1+ (Negative) A 07/30/24 22:30 Urine Glucose (UA) Negative (Normal) 07/30/24 22: Urine Ketones 2+ (Negative) H 07/30/24 22:30 Urine Blood Negative (Negative) 07/30/24 22: Urine Nitrate Negative (Negative) 07/30/24 22:30 Urine Bilirubin Negative (Negative) 07/30/24 22:30 Urine Urobilinogen 1.0 mg/dL (Negative) 07/30/24 22:30 Ur Leukocyte Esterase Negative (Negative) 07/30/24 22:30 Urine RBC 0-4 /hpf (0-2) H 07/30/24 22:30 Urine WBC 0-4 /hpf (0-5) H 07/30/24 22:30 Ur Squamous Epith Cells 0-4 /hpf (0-5) H 07/30/24 22:30 Amorphous Sediment Not Reportable 07/30/24 22:30 Urine Bacteria Trace /hpf (NONE) 07/30/24 22:30 Hyaline Casts 0-4 /lpf H 07/30/24 22:30 Urine Mucus 2+ /hpf 07/30/24 22:30 Urine Opiates Screen Positive ng/mL (Negative) H 07/30/24 22:30 Ur Barbiturates Screen Negative ng/mL (Negative) 07/30/24 22:30 Ur Phencyclidine Scrn Negative ng/mL (Negative) 07/30/24 22:30 Ur Amphetamines Screen Negative ng/mL (Negative) 07/30/24 22:30 U Benzodiazepines Scrn Negative ng/mL (Negative) 07/30/24 22:30 Urine Cocaine Screen Negative ng/mL (Negative) 07/30/24 22:30 U Marijuana (THC) Screen Negative ng/mL (Negative) 07/30/24 22:30 Ethyl Alcohol < 10 mg/dL (0-10) 07/30/24 20:54 All radiology interpretation(s) finalized by discharge Discharge Plan Discharge Patient Disposition: Home Clinical Impression: Multiple falls, Knee contusion, Shoulder pain Condition: Stable Prescriptions: No Action diltiazem HCl [Cardizem CD] 240 mg capsule,extended release 24hr 240 mg PO DAILY losartan 25 mg tablet 25 mg PO DAILY hydrocortisone 2.5 % cream 1 applic topical BID Qty: 30 1RF Rx Instructions: Apply to face BID x 1-2 weeks. May use on hands BID 2 wks/mo prn vitamin B complex Tablet 1 tab PO DAILY amitriptyline 50 mg tablet 50 mg PO BEDTIME multivitamin Tablet 1 tab PO QAM cholecalciferol (vitamin D3) 3,000 unit tablet 3,000 unit PO DAILY folic acid 800 mcg tablet 800 mg PO BID Enbrel SureClick 50 mg/mL (1 mL) pen injector 50 mg SUBCUT Q7D Qty: 4 3RF Rx Instructions: pt states she takes on sundays prednisone 10 mg tablet See Rx Instructions PO .COMPLEX PRN (Reason: joint pain) Rx Instructions: take 1 tab daily for 3-5 days prn flares PO PRN; (DME) TRACTION NECK BRACE See Rx Instructions .Route .MEDSUPPLY Qty: 1 0RF Rx Instructions: As directed methotrexate sodium 25 mg/mL solution 12.5 mg SUBCUT .Q7days Qty: 10 1RF estradiol 0.5 mg tablet 0.5 mg PO DAILY melatonin 5 mg Tablet 5 mg PO BEDTIME PRN (Reason: Sleep) biotin 1 cap PO DAILY hydrocodone-acetaminophen 5-325 mg tablet 1 tab PO Q6H PRN (Reason: Pain) Qty: 15 0RF Rx Instructions: pt states she also has 10-325mg from 5 years ago-pt states she takes only prn Discharge Orders: Discharge ED (Routine); Ordered 07/30/24 Ordered By: Sherine Meeks Referrals: Nino Olson DO [Primary Care Provider] - Discharge Diet: Usual diet Discharge Activity: Increase activity as tolerated Patient Instructions: Fall Prevention for Older Adults (ED), Opioid Safety, Pain Management Activity Restrictions/Additional Instructions: Thank you for choosing [facility] for your healthcare needs today. Please realize this is an emergency room and that we are providing you with a medical screening exam and this may not be complete and all inclusive of all the testing and or work up that you may need to determine your ailment or severity of your illness. You have been screened and evaluated and felt safe for discharge. Health conditions do change or evolve sometimes and as such it is important that you follow up with your Primary Doctor to be re checked, 3-5 days is a general good time frame for follow up. You are always welcome to return to the ED for re assessment if your symptoms are worsening or you have new concerns Coding Level of Care Code ED Legal Secretary for Stu Murillo Related Data Home Medications Medication Instructions Recorded Confirmed amitriptyline 50 mg tablet 50 mg PO BEDTIME 10/21/19 08/01/23 cholecalciferol (vitamin D3) 75 3,000 unit PO DAILY 10/21/19 08/01/23 mcg (3,000 unit) tablet multivitamin 1 tab PO QAM 10/21/19 08/01/23 vitamin B complex 1 tab PO DAILY 10/21/19 08/01/23 folic acid 800 mcg tablet 800 mg PO BID 01/23/20 08/01/23 biotin 1 cap PO DAILY 04/24/20 08/01/23 estradiol 0.5 mg tablet 0.5 mg PO DAILY 04/24/20 08/01/23 melatonin 5 mg tablet 5 mg PO BEDTIME PRN Sleep 04/24/20 08/01/23 prednisone 10 mg tablet See Rx Instructions PO .COMPLEX 06/29/20 08/01/23 PRN joint pain diltiazem HCl 240 mg 240 mg PO DAILY 10/20/20 08/01/23 capsule,extended release 24 hr (Cardizem CD) losartan 25 mg tablet 25 mg PO DAILY 10/20/20 08/01/23 Previous Rx's Medication Instructions Recorded etanercept 50 mg/mL (1 mL) 50 mg SUBCUT Q7D #4 mL 07/14/20 subcutaneous pen injector (St. Renatus) methotrexate sodium 25 mg/mL 12.5 mg (0.5 mL) SUBCUT .Q7days 07/21/20 injection solution #10 mL hydrocortisone 2.5 % topical cream 1 applic topical BID #30 grams 10/20/20 hydrocodone 5 mg-acetaminophen 325 1 tab PO Q6H PRN Pain #15 tabs 06/28/22 mg tablet TRACTION NECK BRACE #1 ea 08/01/23 Allergies Allergy/AdvReac Type Severity Reaction Status Date / Time minoxidil Allergy B/p Verified 07/30/24 20:07 increases leflunomide AdvReac Severe ER visit Verified 07/30/24 20:07 due to HTN
[2024-07-30 22:41] LABS: Alcohol Level < 10 mg/dL (0-10)
[2024-07-30 22:59] LABS: Bilirubin Urine Negative (Negative); Blood Urine Negative (Negative); Glucose Urine UA Negative (Normal); Ketones Urine 2+ (Negative); Leukocyte Esterase Urine Negative (Negative); Nitrate Urine Negative (Negative); Protein Urine 1+ (Negative); Specific Gravity, Urine 1.021 (1.005-1.030); Urine Appearance Clear (CLEAR); Urine Color Dark Yellow (Yellow); pH Urine 6.5 (5-7)
[2024-07-30 23:05] LABS: Amphetamines Screen Urine Negative (Negative); Barbiturates Screen Urine Negative (Negative); Benzodiazepines Screen Urine Negative (Negative); Cocaine Screen Urine Negative (Negative); Opiate Screen Urine Positive (Negative); PCP Screen Urine Negative (Negative); THC Screen Urine Negative (Negative)
[2024-07-30 23:15] LABS: Add Urine Microscopic? YES; Bacteria Urine TRACE /hpf; Mucus Urine 2+ /hpf; RBC Urine 0-4 /hpf (0-2); Squamous Epithelial Cell Urine 0-4 /hpf (0-5); WBC Urine 0-4 /hpf (0-5)
[2024-07-30 23:16] LABS: Hyaline Casts Urine 0-4 /lpf
[2024-07-30 23:44] VITALS: BP 146/85; PULSE 107; O2SAT 97
== END 2024-07-30 23:45 | disposition home or self-care (01) ==
PROVIDERS: Emergency Medicine; Emergency Provider Emergency Medicine; PCP Electrodiagnostic Medicine
DX: S80.00XA Contusion of unspecified knee, initial encounter (principal); M25.519 Pain in unspecified shoulder; W19.XXXA Unspecified fall, initial encounter
CPT/HCPCS: 36415; 70450; 71045; 72125; 72170; 73020; 80053; 80306; 80307; 81001; 83735; 84443; 85025; 93005; 99285

== ENCOUNTER 2025-07-08 11:02 | Outpatient (CLI) | payer MEDICARE, SELFPAY ==
--- NOTE | 2025-07-08 11:10 | MM_ITS ---
WS: [id number] BILATERAL 3D TOMOSYNTHESIS DIGITAL SCREENING MAMMOGRAPHY WITH CAD CLINICAL INFORMATION: SCREENING HISTORY: Screening mammogram. No current complaints. COMPARISON: 2023 TECHNIQUE: Bilateral CC and MLO views. FINDINGS: The breasts are composed of heterogeneous fibroglandular density tissue, which can limit the detection of small underlying mass lesions. No suspicious mass, asymmetry, calcifications, or architectural distortion. No evidence of malignancy. Vascular calcification. Incidental punctate and lucent centered calcifications. Stable coarse clustered calcifications RIGHT breast. MM/MM [facility] tomosynthesis [id number] IMPRESSION: DENSITY: The breasts are heterogeneously dense, which may obscure small masses. BI-RADS: 2 - Benign FOLLOW UP: 1 Year Follow-up Recommend return to annual screening mammography.
== END 2025-07-08 11:03 | disposition home or self-care (01) ==
LOC: RAD 11:04
PROVIDERS: PCP Electrodiagnostic Medicine; Visit Provider Electrodiagnostic Medicine
DX: Z12.31 Encounter for screening mammogram for malignant neoplasm of breast (principal); R92.333 Mammographic heterogeneous density, bilateral breasts; R92.323 Mammographic fibroglandular density, bilateral breasts; R92.1 Mammographic calcification found on diagnostic imaging of breast
CPT/HCPCS: 77063; 77067

== ENCOUNTER 2025-09-20 09:49 | Emergency (ER) | payer MEDICARE, SELFPAY ==
[2025-09-20 09:51] VITALS: BP 168/74; PULSE 92; RESP 17; TEMP 36.6; O2SAT 94; BMI 23.2
--- OUTSIDE RECORDS SUMMARY | 2025-09-20 09:53 | XMS_ITS | Data Portability ---
Author Organization [facility] [place] [facility], [facility] Address [address] [address] Care Team Providers Care Ginner Name Role Phone ALESHA MERCHANT Primary Care Provider ALYSHA Woods Referring Provider [phone] Assessment Encounter Date Assessment Date Assessment LastModified by Organization Details LastModified Time 11/27/2024 11/27/2024 Document scribed by Tico Reyez Learning Strategist. I was present during interview and exam. I have reviewed and agree with above documentation. Dr. Alesha Merchant. A Care Coordination Assessment form was filled out as part of this patient's office visit today. Pt to return for fasting lab. [email or web address] Not available 11/27/2024 11:13:20 07/23/2025 07/23/2025 Document scribed by Tico Reyez Learning Strategist. I was present during interview and exam. I have reviewed and agree with above documentation. Dr. Alesha Merchant. [email or web address] Not available 07/23/2025 09:15:51 Plan of Treatment Reminders Order Date Submit Date Provider Last Modified By Organization Details Last Modified Time Details Appointments None recorded. Lab CMP, serum or plasma 2024 025 NO [facility], [address] [facility], [facility] 1, [place], [address], 11:38:33 lipid panel, blood 2024 025 LOCUST FORK [facility], [address] [facility], [address], [place], [address], 5 11:38:35 CBC 2024 025 [facility], [address], [address], [place], [address], 5 11:15:51 vitamin D, 25-hydroxy, total, serum 2024 025 WAKU WAKU ? [facility], [address] [place] [address] [address], [address], [place], [address], 5 08:00:40 vitamin B12 + folate, serum or blood 2024 WAKU WAKU ? [facility], [address] [place] [address] 248, [address], [place], [address], 5 08:00:39 thyrotropin , QN, serum or plasma 2024 025 [facility], [address], [address], [place], [address], 5 12:13:39 Referral gynecologis t referral - Dr. Maria Victoria MAHMOOD 2024 025 [facility] Jesse Brian , [address] [place] [address], [address], 5 12:10:50 Procedures arthrocente sis, aspiration and/or injection, major joint or bursa (PROC) 2024 025 [email or web address] [facility], [address], [address], [place], [address], 5 15:39:57 arthrocente sis, aspiration and/or injection, major joint or bursa (PROC) 2024 025 [email or web address] Not available 15:39:56 Surgeries None recorded. Imaging XR, wrist, 3 or more view 2024 025 [email or web address] [facility], [address] [place], [address], 5 13:42:52 XR, wrist, 3 or more view 2024 025 [email or web address] [facility], [address] [place], [address], 17:28:54 Medication Orders prednisone 20 mg tablet 2024 [facility] 15, [address], [address], 05:01:49 Kenalog 40 mg/mL suspension for injection 2024 025 [email or web address] Not available 13:20:25 sertraline 50 mg tablet 2024 [facility] 15, [address], [place], [address], 09:46:34 hydrocodone 10 mg-acetamin ophen 325 mg tablet 2024 025 [facility] 15, [address], [place], [address], 5 10:59:57 prednisone 20 mg tablet 2024 025 [facility] 15, [address], [place], [address], 5 05:01:49 Kenalog 40 mg/mL suspension for injection 2024 025 [email or web address] Not available 11:02:02 hydrocodone 10 mg-acetamin ophen 325 mg tablet 2024 025 [facility] 15, [address], [place], [address], 13:45:54 Kenalog 40 mg/mL suspension for injection 2024 025 [email or web address] Not available 11:02:02 Patient TargetsNo targets recorded. Patient InstructionsNo instructions recorded. 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 Maria Victoria MAHMOOD Referring Physician: Alesha Merchant, Family Medicine, Encounter Date: 11/27/2024 Results Created Date Observation Date Name Description Value Unit Range Abnormal Flag Note LastModifiedBy Organization Detail LastModifiedTime 11/28/1911/28/2024 CBC WBC 6.2 x10 4.0-10 .5 Not Available [facility] [place] [facility] [address] [facility] 1, [place], [address], 11/28/2024 11:15:51 11/28/19 25 11/28/2024 CBC RBC 4.21 x10 3.50-5 .50 Not Available [facility] [place] [facility] [place] [facility] [address] [facility] 1, [place], [address], 11/28/2024 11:15:51 11/28/19 25 11/28/2024 CBC HGB 14.3 g/dL 12.0-1 6.0 Not Available [facility] [place] [facility] [place] [facility] [address] [facility] 1, [place], [address], 11/28/2024 11:15:51 11/28/19 25 11/28/2024 CBC HCT 40.9 % 37.0-4 7.0 Not Available [facility] [place] [facility] [place] [facility] [address] [facility] 1, [place], [address], 11/28/2024 11:15:51 11/28/19 25 11/28/2024 CBC MCV 97.2 fL 80.0-9 9.9 Not Available [facility] [place] [facility] [place] [facility] [address] [facility] [address] [facility] 1, [place], [address], 11/28/2024 11:15:51 11/28/19 25 11/28/2024 CBC MCH 33.9 pg 27.0-3 2.0 high Not Available [facility] [place] [facility] [place] [facility] [address] [facility] 1, [place], [address], 11/28/2024 11:15:51 11/28/19 25 11/28/2024 CBC MCHC 34.9 g/dL 32.0-3 6.0 Not Available [facility] [place] [facility] [address] [place] [address] [facility] 1, [place], [address], 11/28/2024 11:15:51 11/28/19 25 11/28/2024 CBC RDW 12.7 % 11.5-1 4.5 Not Available [place] [facility] [place] [facility] [address] [facility], [place], [address], 11/28/2024 11:15:51 11/28/19 25 11/28/2024 CBC plt 258.6 x10 140.0- 451.0 Not Available [facility] [place] [facility] [address] [place] [facility], [place], [address], 11/28/2024 11:15:51 11/28/19 25 11/28/2024 CBC lymphocytes % 40.1 % 20.0-5 0.0 Not Available [facility] [place] [facility] [address] [place] [address] [facility] 1, [place], [address], 11/28/2024 11:15:51 11/28/19 25 11/28/2024 CBC granulcytes % 41.3 % 30.0-7 0.0 Not Available [facility] [place] [facility] [address] [place] [address] [facility] 1, [place], [address], 11/28/2024 11:15:51 11/28/19 25 11/28/2024 CBC monocytes % 17.0 % 2.0-16 .0 high Not Available [facility] [address] [address], [place], [address], 11/28/2024 11:15:51 11/28/19 25 11/28/2024 CBC granulcytes# 2.6 x10 Not Rozina ilable [facility] [address] [address], [place], [address], 11/28/2024 11:15:51 11/28/19 25 11/28/2024 CBC lymphocytes # 2.5 x10 Not Available [facility] [address] [address], [place], [address], 11/28/2024 11:15:51 11/28/19 25 11/28/2024 CBC monocytes # 1.1 x10 Not Avai lable [facility] [address] [address], [place], [address], 11/28/2024 11:15:51 11/28/19 25 11/28/2024 CMP (FEMA LE) glucose 102.0 mg/dL 60.0-9 9.0 high Not Available [facility] [address] [address], [place], [address], 11/28/2024 11:38:33 11/28/19 25 11/28/2024 CMP (FEMA LE) BUN (blood urea nitrogen) 10.0 mg/dL 10.0-2 6.0 Not Available [facility] [address] [address], [place], [address], 11/28/2024 11:38:33 11/28/19 25 11/28/2024 CMP (FEMA LE) creatinine (serum) 0.7 mg/dL 0.4-1. 5 Not Available [facility] [address] [address], [place], [address], 11/28/2024 11:38:33 11/28/19 25 11/28/2024 CMP (FEMA LE) BUN/creatini ne ratio 14.29 ratio Not Available [facility] [address] [facility] 1, [place], [address], 11/28/2024 11:38:33 11/28/19 25 11/28/2024 CMP (FEMA LE) eGFR calculated 86.9 Not Available [facility] [address] [facility] 1, [place], [address], 11/28/2024 11:38:33 11/28/19 25 11/28/2024 CMP (FEMA LE) total protein 8.2 g/dL 6.0-8. 5 Not Available [facility] [address] [address], [place], [address], 11/28/2024 11:38:33 11/28/19 25 11/28/2024 CMP (FEMA LE) total bilirubin 0.5 mg/dL 0.2-1. 3 Not Available [facility] [address] [facility] 1, [place], [address], 11/28/2024 11:38:33 11/28/19 25 11/28/2024 CMP (FEMA LE) albumin 4.7 g/dL 3.5-5. 5 Not Available [facility] [address] [facility] 1, [place], [address], 11/28/2024 11:38:33 11/28/19 25 11/28/2024 CMP (FEMA LE) globulin 3.5 calc Not Available [facility] [address] [facility] 1, [place], [address], 11/28/2024 11:38:33 11/28/19 25 11/28/2024 CMP (FEMA LE) AST (SGOT) 28.0 U/L 0.0-46 .0 Not Available [facility] [place] [facility] [place] [facility] [address] [place] [facility], [place], [address], 11/28/2024 11:38:33 11/28/19 25 11/28/2024 CMP (FEMA LE) altv (SGPT) 23.0 U/L 13.0-6 9.0 normal Not Available [facility] [place] [facility] [address] [facility] 1, [place], [address], 11/28/2024 11:38:33 11/28/19 25 11/28/2024 CMP (FEMA LE) A/G ratio 1.3 ratio Not Available [facility] [address] [facility] 1, [place], [address], 11/28/2024 11:38:33 11/28/19 25 11/28/2024 CMP (FEMA LE) ALP phos 69.0 U/L 30.0-1 40.0 normal Not Available [place] [facility] [address] [facility] 1, [place], [address], 11/28/2024 11:38:33 11/28/19 25 11/28/2024 CMP (FEMA LE) calcium 9.2 mg/dL 8.4-10 .5 Not Available [facility] [place] [facility] [place] [facility] [address] [facility] 1, [place], [address], 11/28/2024 11:38:33 11/28/19 25 11/28/2024 CMP (FEMA LE) sodium 137.0 mmol/ L 136.0- 145.0 Not Available [facility] [place] [facility] [place] [facility] [address] [facility] 1, [place], [address], 11/28/2024 11:38:33 11/28/19 25 11/28/2024 CMP (FEMA LE) potassium 4.3 mmol/ L 3.5-5. 1 Not Available [facility] [place] [facility] [place] [facility] [address] [facility] 1, [place], [address], 11/28/2024 11:38:33 11/28/19 25 11/28/2024 CMP (FEMA LE) chloride 101.0 mmol/ L 98.0-1 10.0 normal Not Available [place] [facility] [address] [facility] 1, [place], [address], 11/28/2024 11:38:33 11/28/19 25 11/28/2024 CMP (FEMA LE) C02 27.0 mmol/ L 22.0-3 1.0 Not Available [facility] [place] [facility] [address] [facility] 1, [place], [address], 11/28/2024 11:38:33 11/28/19 25 11/28/2024 CMP (FEMA LE) anion gap 9.0 calc Not Available [facility] [address] [facility] 1, [place], [address], 11/28/2024 11:38:33 11/28/19 25 11/28/2024 CMP (FEMA LE) osmolality 282.4 calc Not Available [place] [facility] [address] [facility] 1, [place], [address], 11/28/2024 11:38:33 11/28/19 25 11/28/2024 LIPID PROFI LE (FEMA LE) cholesterol 182.0 mg/dL 0.0-20 0.0 Not Available [facility] [place] [facility] [place] [facility] [address] [facility] 1, [place], [address], 11/28/2024 11:38:35 11/28/19 25 11/28/2024 LIPID PROFI LE (FEMA LE) trig 63.0 mg/dL 0.0-15 0.0 Not Available [facility] [place] [facility] [place] [facility] [address] [facility] 1, [place], [address], 11/28/2024 11:38:35 11/28/19 25 11/28/2024 LIPID PROFI LE (FEMA LE) HDL - direct 110.0 mg/dL >40.0 Not Available [facility] [address] [facility] 1, [place], [address], 11/28/2024 11:38:35 11/28/19 25 11/28/2024 LIPID PROFI LE (FEMA LE) VLDL - direct 12.6 mg/dL Not Available [facility] [address] [facility] 1, [place], [address], 11/28/2024 11:38:35 11/28/19 25 11/28/2024 LIPID PROFI LE (FEMA LE) LDL - direct 59.4 mg/dL 0.0-13 0.0 Not Available [facility] [address] [facility] 1, [place], [address], 11/28/2024 11:38:35 11/28/19 25 11/28/2024 TSH TSH 1.36 uIU/m L 0.49-3 .82 Not Available [address] [facility] 1, [place], [address], 11/28/2024 12:13:39 11/28/19 25 11/29/2024 VITAM IN B12/F OLATE , SERUM PANEL vitamin B12 549 pg/mL 200-11 00 normal Not Available [facility] [address] [place], [address], 11/29/2024 08:00:39 11/28/19 25 11/29/2024 VITAM IN B12/F OLATE , SERUM PANEL folate, serum >24.0 NG/mL normal Refer ence Range Low: <3.4 Borde rline : 3.4-5 .4 Amee l: >5.4 Not Available [facility] [address] [place], [address], 11/29/2024 08:00:39 11/28/19 25 11/29/2024 VITAM IN D,25- OH,TO LINDA,I A vitamin D,25-oh,tota seraia 43 NG/mL 30-100 normal Vitam in D Statu s 25-OH Vitam in D: Defic iency : <20 ng/mL Insuf ficie ncy: 20 - 29 ng/mL Optim al: > or = 30 ng/mL For 25-OH Vitam in D testi ng on patie nts on D2-salcido pplem entat ion and patie nts for whom quant itati on of D2 and D3 fract ions is requi red, the [employer] Assur eD(TM ) 25-OH VIT D, (D2,D 3), LC/MS /MS is recom richy d: order code 80150 (messi ents >2yrs ). See Note 1 Note 1 For addit ional infor baljeet rodriguez e refer to http: //[facility] frances fontana.Randolph Jacksonia gnost ics.c om/fa q/FAQ 199 (This link is being provi ded for infor denice yeh/ educlesly zamora purpo ses only. ) Not Available [facility] [address] [place], [address], 11/29/2024 08:00:40 11/27/19 25 07/30/2024 CT, head, w/o contr ast No observ ation record ed. [email or web address] Not Available 12/02 11:32:29 03/25/20 25 03/24/2025 XR, wrist , 3 or more view No observ ation record ed. [email or web address] [facility] [address] [place], [address], 03/26/2025 07:13:54 07/08/20 25 07/08/2025 MAMMO , scree sebas, digit al, bilat eral No observ ation record ed. [email or web address] [facility] [address] [place], [address], 07/09/2025 11:24:37 07/23/20 25 07/23/2025 XR, wrist , 3 or more view No observ ation record ed. [facility] [address] [place], [address], 07/24/2025 12:27:33 Result Notes None recorded. 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 5 10:59:16 Tendiniti s of right shoulder 889002484343 9101 Completed 11/27/2024 Francoise sanchez [facility] 5 11:01:46 Laceratio n of lip 202877753 Completed 11/27/2024 Francoise sanchez [facility] 5 10:59:21 History of malignant neoplasm of skin excluding melanoma 460008866 Completed 11/27/2024 Francoise sanchez [facility] 5 10:59:04 Degenerat ion of cervical intervert ebral disc 35609328 Active Francoise sanchez [facility] 5 11:00:40 Depressiv e disorder 78752827 Active 2022 Francoise sanchez [facility] 5 11:00:44 Chronic neck pain 354338212292 7 Active 2022 Francoise sanchez [facility] 5 11:00:37 Osteoporo sis 53167527 Active 2022 Francoise sanchez [facility] 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 5 11:00:56 Fatigue 35693746 Active 2022 Francoise sanchez, [facility] 5 11:01:24 Essential hypertens ion 33729440 Active 2022 Francoise Vincent laura, [facility] 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 5 10:59:53 Bereaveme nt 56677508 Active 2023 Francoise sanchez, [facility] 5 10:58:45 Mass of right breast 806602130980 [address]61 Completed 202311/27/2024 Francoise sanchez, [facility] 5 10:59:30 Visual hallucina tions 92393164 Completed 202311/27/2024 Francoise sanchez, [facility] 5 11:01:52 Degenerat sandra joint disease of thumb 182267091296 [address] Active 2024 Tico sanchez [facility] 5 11:15:29 Rheumatoi d arthritis 15307007 Active 2024 Tico sanchez [facility] 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 Procedures Surgical History Date Name Laterality Status Provider Name and Address Organization Details Recorded Time 06/12/20 25 Joint Inj Kenalog- Shoulder, Hip, Knee completed Alesha Merchant [address], [address], [facility]mo 06/12/2025 09:42:38 10/14/19 25 Joint Inj Kenalog- Shoulder, Hip, Knee completed Alesha Merchant [address], [address], [facility] 10/14/2024 13:58:29 07/02/20 24 jr cryo warts completed Tico Reyez [facility]mo 07/02/2024 12:14:17 hysterectomy completed Francoise Vincent [facility].L.C[facility]mo 11/27/2024 11:02:27 repair of urinary bladder completed Francoise Vincent [facility]mo 11/27/2024 11:02:36 Imaging Results None recorded. Procedure Notes None recorded. Medical Equipment None Reported. Allergies No known drug allergies Medications Name Sig Start Date Stop Date Status Note LastModified by Organization Details LastModified Time cyclobenz aprine 10 mg tablet 05/07 completed Not Available Not Available Not Available amoxicill in 500 mg capsule 05/07 completed Not Available Not Available Not Available doxycycli ne hyclate 100 mg capsule TAKE 1 CAPSULE BY MOUTH TWICE DAILY 06/12 completed Not Available Not Available Not Available diltiazem ER (XR/XT) 240 mg capsule,e xtended release 24 hr, controlle d Take 240 mg by oral route. 10/14 completed Not Available Not Available Not Available azithromy stanislav 250 mg tablet TAKE 2 TABLETS BY MOUTH ON DAY ONE, THEN ON DAYS 2-5 TAKE 1 TABL ET BY MOUTH ONCE DAILY 01/24 completed Not Available Not Available Not Available hydrocodo ne 5 mg-acetam inophen 325 mg tablet every eight hours, as needed 06/30 completed Recorded 11/08/19 23 10:58AM by Alesha Merchant DO, Refill Request; Mail Order Quantity : 90 Tablet; Mail Order Days: 30 Days; Refill Quantity : 0; Not Available Not Available Not Available diltiazem CD 240 mg capsule,e xtended release 24 hr TAKE ONE CAPSULE BY MOUTH DAILY active Not Available Not Available No t Available prednison e 20 mg tablet Take 1 tablet every day by oral route in the morning for 7 days. 08/06 completed Not Available Not Available Not Available sertralin e 100 mg tablet TAKE 1 TABLET BY MOUTH ONCE DAILY FOR MOOD 09/02 completed Not Available Not Available Not Available diltiazem ER 240 mg capsule,2 4 hr,extend ed release Take 1 capsule by mouth once daily 2024 active Not Available Not Available Not Avai lable ciproflox acin 500 mg tablet Take 1 tablet twice a day by oral route for 10 days. 07/17 completed Not Available Not Available Not Available hydrocodo ne 10 mg-acetam inophen 325 mg tablet TAKE 1 TABLET BY MOUTH THREE TIMES DAILY NEEDED FOR SEVERE PAIN active Not Available Not Available No t Available amitripty line 50 mg tablet TAKE 1 TABLET BY MOUTH AT BEDTIME 2024 active Not Available Not Available Not Avai lable Kenalog 40 mg/mL suspensio n for injection Take 40 mg by injectio n route. 2024 active Not Available Not Available Not Avai lable amitripty line 25 mg tablet Take 1 tablet every day by oral route for 30 days, for sleep. 09/02 completed Not Available Not Available Not Available methocarb marissa 750 mg tablet 05/07 completed Not Available Not Available Not Available baclofen 10 mg tablet 05/07 completed Not Available Not Available Not Available losartan 25 mg tablet Take 1 tablet by mouth once daily 2024 active Not Available Not Available Not Avai lable sertralin e 25 mg tablet 05/07 completed Not Available Not Available Not Available estradiol 0.5 mg tablet Take 1 tablet by mouth once daily 2024 active Not Available Not Available Not Avai lable sertralin e 50 mg tablet Take 1 tablet every day by oral route for 30 days, for mood. 2024 active Not Available Not Available Not Avai lable doxycycli ne hyclate 100 mg tablet 05/07 completed Not Available Not Available Not Available Diltiazem ER 240 mg capsule, extended release Take 240 mg every 24 hours by oral route. 05/07 completed Not Available Not Available Not Available cyclobenz aprine 5 mg tablet 05/07 completed Not Available Not Available Not Available Enbrel 50 mg/mL (1 mL) subcutane ous syringe Inject 1 mL every week by sub-q route. active Not Available Not Available No t Available Cardizem CD daily 05/09 completed DM/sd; 04309; Recorded 11/08/19 23 10:36AM by Lexy Platt (Authori zed through Alesha Merchant DO), Refill Request; Mail Order Quantity : 90 Capsule; Refill Quantity : 0; Not Available Not Available Not Available amitripty line at bedtime 05/09 completed 30537; Recorded 11/08/19 23 10:35AM by Lexy Platt (Authori zed through Alesha Merchant DO), Refill Request; Mail Order Quantity : 90 Tablet; Refill Quantity : 0; Tablet; Not Available Not Available Not Available melatonin 5 mg tablet 5 mg by oral route. 2019 active Not Available Not Available Not Avai lable losartan potassium (bulk) 01/24 completed Not Available Not Available Not Available Paxlovid 300 mg (150 mg x 2)-100 mg tablets in a dose pack TAKE DIRECTED 01/24 completed Not Available Not Available Not Available Vitals Date Recorded Body height Body mass index (BMI) Body weight Oxygen saturation Heart rate Respiratory rate Systolic And Diastolic Provider Name and Address Organization Details Last Updated DateTime 5 154.94 cm 25.1 kg/m2 08375.7 9 g 98 % 80 /min 18 /min 136/84 mm[Hg] [facility] 12:48:01 Date Recorded Body height Body mass index (BMI) Body weight Oxygen saturation Heart rate Respiratory rate Systolic And Diastolic Provider Name and Address Organization Details Last Updated DateTime 5 154.94 cm 25.3 kg/m2 65067.0 8 g 98 % 83 /min 18 /min 138/88 mm[Hg] Francoise [facility] 5 10:58:21 Date Recorded Body height Body mass index (BMI) Body weight Oxygen saturation Heart rate Respiratory rate Systolic And Diastolic Provider Name and Address Organization Details Last Updated DateTime 5 154.94 cm 25.8 kg/m2 51688.6 6 g 95 % 94 /min 18 /min 120/70 mm[Hg] [facility] 09:59:17 Date Recorded Body height Body mass index (BMI) Body weight Oxygen saturation Heart rate Respiratory rate Systolic And Diastolic Provider Name and Address Organization Details Last Updated DateTime 5 154.94 cm 25.1 kg/m2 85455.7 9 g 96 % 88 /min 18 /min 124/72 mm[Hg] SHANEKA MICHOACANO [facility] 5 09:12:21 Date Recorded Body height Body mass index (BMI) Body weight Oxygen saturation Heart rate Respiratory rate Systolic And Diastolic Provider Name and Address Organization Details Last Updated DateTime 5 154.94 cm 24.4 kg/m2 35662.8 2 g 95 % 83 /min 18 /min 132/78 mm[Hg] [facility] 09:09:01 Social History Question Answer Notes LastModified by Organizat Webcollage Details LastModified Time Tobacco Smoking Status Former Smoker [facility] 11/27/2024 11:05:42 What Is Your Level Of Caffeine Consumption? Heavy [email or web address] Information not available 11/27/2024 When Did You Quit Smoking? 16+yearssinc elastcigaret te [email or web address] Information not available 11/27/2024 What Was The Date Of Your Most Recent Tobacco Screening? 11/27/2024 [email or web address] Information not available 11/27/2024 How Much Tobacco Do You Smoke? 1 PPD [email or web address] Information not available 11/27/2024 Sex: Unknown Functional Status Question Answer Note LastModified by [employer] Details LastModified Time Do you use any illicit or recreational drugs? No [email or web address] Information not available 01/24/2023 Do you or have you ever used any other forms of tobacco or nicotine? No Information not available 01/24/2023 What is your level of alcohol consumption? Occasional [email or web address] Information not available 01/24/2023 Do you or have you ever used any nicotine-free cigarettes, vape, or chewing tobacco? No [email or web address] Information not available 11/27/2024 Mental Status None recorded. Family History Relationship Description Onset Age of this Age Resolved Age Notes LastModified by Organization Details LastModified Time Paternal Grandfather Malignant neoplasm of colon [email or web address] Not available 2024 11:04:28 Mother Rheumatoid arthritis [email or web address] Not available 2024 11:04:37 Mother Heart disease [email or web address] Not available 2024 11:04:46 Sister Diabetes mellitus [email or web address] Not available 2024 11:04:53 Medical History No medical history recorded. Gynecological HistoryNo gynecological history recorded. Obstetrics History GPAL:G 0 P 0 0 0 0 Immunizations Vaccine Type Date Status Note Provider Nam e and Address Organization Details Recorded Time Pneumococcal conjugate PCV20, polysaccharide RZV524 conjugate, adjuvant, PF 4 completed Alesha Merchant DO [address] [place] [address], [phone], [facility], [place] 10/13/2023 16:37:18 Tdap 3 completed LEXY sanchez [facility], [place] 02/21/2023 15:50:34 pneumococcal polysaccharide PPV23 7 completed Not [facility]/10/[facility]23 10:59:37 Past Encounters Encounter ID Performer Location Encounter Start Date Encounter Closed Date Diagnosis/Indication Diagnosis SNOMED-CT Code Diagnosis ICD10 Code Diagnosis IMO Codes Diagnosis Note [id number] Alesha Merchant DO [facility] ([facility]) [address] [place] [phone] 5 01/24/2023 09:28:46 01/24/2023 11:49:57 Depressive disorder 66118943 F32.1 saravananAnselmo castro 2/2 husbands cancer dx even with improvemen t in his cancer recently. will start RX. counseled on home/famil y support. f/u 1 mt. Neck pain 78161213 M54.2 M62.830 and shoulde pain with spasm of left trap will start prn msucle relaxers. counseled on .side effects and expectatio ns. consider PT if not better in 1-2 wks. [id number] Alesha Merchant DO [facility] ([facility]) [address] [place] [id number] 02/21/2023 10:52:21 02/21/2023 20:17:41 Depressive disorder 74515700 F32.9 improved with sertraline . continue. f/u prn Cellulitis of left thumb 4642372152 5894215 L03.012 mild. will start abx, update tetnus Muscle spa sm of cervical muscle of neck 4734065630 04 M62.838 continue tizanidine , pt to get massages. Return to office with no improvemen t or any problems. Go to [place] severe [place] [id number] Alesha Merchant DO [facility] ([facility]) [address] [place] [address] 03/13/2023 12:21:51 03/13/2023 16:58:32 Muscle spasm of cervical muscle of neck 0923714189 04 M62.838 progressiv marcello worsening with more pain and decreased ROM. will get xray today. change muscle relaxer. prednisone for 1 wk. will consider PT vs MRI pending results. Chronic neck pain 537910 0162 107 M54.2 worsening. Xray today. baclofen, prednisone burst. consider PT vs MRI pending results. Fatigue 20475784 R53.83 chronic. not worsening. no new labs. Rheumatoid arthritis 698 19175 M06.9 continue with rheumatolo gist and Enbrel. Displaceme nt of lumbar intervertebral disc without myelopathy 75890344 M51.26 continue prn norco. Osteoporosis 47238953 M8 1.0 calcium, vit D daily. exercise daily. Essential hypertension 14229247 I10 Stable. Continue diltiazem and losartan. [id number] FRANCESCO JAEGER NP [facility] ([facility]) [address] [place] [id number] 5 05/01/2023 09:38:14 05/01/2023 11:31:03 Muscle spasm of cervical muscle of neck 5167455692 04 M62.838 Discussed to apply heating pad on low setting for 20 minutes every 1-2 hours while awakeConti nue taking prior prescribed muscle relaxers as directedDi scussed taking steroid as prescribed until completedM ay use OTC back creams/pro ducts as box directsLim it bending at the waist or heavy liftingCon tinue going to physical therapy as prior prescribed Discussed importance of attending appointmen t with Dr. Merchant on 05/10/23 for follow up. If you develop any urinary incontinen ce, urinary retention, fever, increased pain, leg weakness/n umbness - seek evaluation at the ED Return to clinic if any changes, any worsening, any concernsPa tient verbalized understand ing of plan. [id number] ADA DE OLIVEIRA [facility] ([facility]) [address] [place] [phone] 5 05/09/2023 10:43:54 05/09/2023 16:01:40 Adult health examination 979944643 Z00.00 Rheumatoid arthritis 698 89371 M06.9 Send copy of labs to Dr. Tylor Bunn is screening 160483915 Z11.1 [id number] Alesha Merchant DO [facility] ([facility]) [address] [place] [address] [phone] 5 05/10/2023 10:17:45 05/10/2023 12:38:15 Chronic neck pain 0621836173 107 M54.2 worsening. see below Displaceme nt of cervical intervertebral disc without myelopathy 95918938 M50.20 Worsening for more than 4 months. X-ray from March consistent with cervical disc displaceme nt with impingemen t. Patient has failed steroids, NSAIDs, narcotic pain medicine, muscle relaxers, rest, 6 weeks of physical therapy. Will need to proceed with MRI. Counseled. Will increase pain medication . [id number] Alesha Merchant DO [facility]) [address] [place] [phone] 5 05/29/2023 12:22:28 05/29/2023 15:23:30 Chronic neck pain 9574865608 107 M54.2 worsening, Pt needs advanced imaging for further diagnosis so that we can consider treatment options like surgery, Pain management injections , or different therapies. Displaceme nt of lumbar intervertebral disc without myelopathy 01809475 M51.26 continue prn norco. Pain, decreased range of motion, radicular symptoms have been progressin g for 4 to 6 months despite rest, anti-infla mmatories, muscle relaxers, narcotic pain medicine, 6+ weeks of physical therapy, and lifting restrictio ns. We have utilized steroids and obtain x-rays which show concern for myelopathy . We have ordered an MRI however insurance is not willing to cover this despite the failure of all above treatments . Patient is worsening and not improving. We need advanced imaging so that we can further evaluate for cause and determine need for surgery and or pain management therapies like injections and possibly other forms of physical therapy and Occupation al Therapy.We will continue to try to get MRI covered As this is standard of care. [id number] Alesha Merchant DO [facility] ([facility]) [address] [place] [address] [phone] 5 06/30/2023 08:01:02 06/30/2023 09:18:47 Chronic neck pain 3664655966 107 M54.2 worsening, patient has failed home exercise, OTC and prescripti on medication s. she has failed physical therapy. will proceed with Pain Management referral Displaceme nt of cervical intervertebral disc without myelopathy 80486243 M50.20 Worsening for more than 4 months. X-ray from March consistent with cervical disc displaceme nt with impingemen t. Patient has failed steroids, NSAIDs, narcotic pain medicine, muscle relaxers, rest, 6 weeks of physical therapy. She has very limited ROM and deals with constant pain that affects her daily activities and nightly sleep. MRI with several bone spurs impeding on central canal as well as multilevel facet arthropath y.I discussed options with pt. she prefers non-surgic al interventi ons first, but wants to talk with a spine surgeon. I will refer to Dr. Almeida and Dr. Moran at [facility]. Depressive disorder 4011 4941 F32.9 Worsening with use of 's cancer spreading. We will increase sertraline from 25 mg to 50 daily. Follow-up with me in 1 month. Counseled. Return sooner with worsening. [id number] Alesha Merchant DO [facility]) [address] [place] [phone] 5 10/10/2023 10:59:21 10/10/2023 12:24:35 Chronic neck pain 8076864436 107 M54.2 worsening, patient has failed home exercise, OTC and prescripti on medication s. she has failed physical therapy. will proceed with Pain Management referral10/10/23- seen by Dr. Moran, no interventi on, not bad enough per patient. No Pain Management appt, advised pt go the pain clinic office and inquire about referral and appt, as our records say an appt was made, however pt hasn't heard of an appt date. Pt to call and let us know status of appt. Active or passive immunization 186522892 Z23 Pneumovax today, pt will consider RSV vax. [id number] Alesha Merchant DO [facility]) [address] [place] [address] [phone] 5 01/02/2024 16:33:59 01/05/2024 09:40:03 [id number] Alesha Merchant DO [facility]) [address] [place] [address] [phone] 5 01/03/2024 11:02:04 01/04/2024 09:22:41 Seropositive rheumatoid arthritis 850817554 M05.79 [id number] Alesha Merchant DO [facility] ([facility]) [address] [place] [address] [phone] 5 01/29/2024 13:40:06 01/29/2024 16:01:03 Displacement of cervical intervertebral disc without myelopathy 43878544 M50.20 Pain management has not been very helpful. We will continue as needed hydrocodon e. Continue home exercises. Counseled. Bereavement 18673565 Z63 .4 Patient lost her , Nicolás, early January 2024 to cancer. Was on [facility] hospice for 1 week.She has good family support and good to her support. We will increase her sertraline . She has plans for projects and keep busy. Counseled patient extensivel y. She will follow-up 4 weeks. Sooner with problems. Depressive disorder 3548 3557 F32.9 Worsening with 's in early January 2024. Increase sertraline to 100 mg daily. [id number] Alesha Merchant DO [facility] ([facility]) [address] [place] [address] [phone] 5 02/28/2024 10:24:00 02/28/2024 13:05:53 Bereavement [id number] Z63.4 Patient lost her , Nicolás, January 2024 to cancer. Was on [facility] hospice for 1 week.She has good family support and good to her support.Co ntinues Sertraline . Depressive disorder 3548 9007 F32.9 02/28/24- improving with Sertraline , after loss of spouse, continue current tx. [id number] Alesha Merchant DO [facility] ([facility]) [address] [place] [address] [phone] 5 05/07/2024 14:02:51 05/07/2024 15:41:05 Active or passive immunization 443791792 Z23 counseled. will get records of her shingrix vacc that was about 8 years ago. Adult heal th examination 733240704 Z00.00 Patient presented to office today for their Medicare Annual Wellness Visit. Education was provided on healthy nutrition, including a diet rich in fruits and vegetables , minimizing simple carbohydra eda, salt, and saturated fats. Encouraged regular cardiovasc ular exercise such as walking at least 30 minutes daily, 5 times per week. Emphasized preventive health measures and educated pt on fall prevention and community- based lifestyle interventi ons to help reduce health risks and promote healthy living. Bereavement 50554023 Z63 .4 Patient lost her , Nicolás, early January 2024 to cancer. Was on [facility] hospice for 1 week.She has good family support and good to her support.Co ntinues Sertraline . stable. Depressive disorder 3548 9007 F32.9 improved with Sertraline , after loss of spouse, continue current tx. Osteoporosis 03286850 M8 1.0 calcium, vit D daily. exercise daily. Mass of right breast [id number] [id number] 5775377 N63.10 Found on mammogram May 2024. We have ordered additional views and ultrasound . Counseled patient. Phone follow-up. Screening for malignant neoplasm of colon 512828652 Z12.11 last colonoscop y was 9 years ago in [place]. No polyps or abnormalit ies. Will plan on repeating colonoscop y in 2024. counseled patient. [id number] Alesha Merchant DO [facility] ([facility]) [address] [place] [address] [phone] 5 05/22/2024 11:09:26 05/23/2024 11:15:10 Dysuria 89895310 R30.0 Counseled UTI, fluids, cranberry juice, will treat with Cipro, which has worked well for her in the past. [id number] Alesha Merchant DO [facility] ([facility]) [address] [place] [address] [phone] 5 07/02/2024 11:16:18 07/08/2024 08:06:11 Pain in right foot 8664335732 02170 M79.671 I have independen tly reviewed and interprete d XR results, d/w patient. Dr. Lucy Merchant. XR right foot: no fracture, no acute process. Discussed with pt, counseled bruising, wear shoes to support arch way, try to rest this, expect slow improvemen t. Lesion of skin of face 5440194446 06 L98.9 07/02/24- Right forehead. Cryotherap y, counseled if recurrent will send Derm referral. [id number] Alesha Merchant DO [facility] ([facility]) [address] [place] [address] [phone] 5 07/03/2024 16:05:40 07/03/2024 16:51:06 Sprain of right foot 0083665667 2519576 S93.601A 07/03/24- pain worsening, XR negative yesterday, counseled will place in boot, repeat XR in 2 weeks. [id number] Alesha Merchant DO [facility] ([facility]) [address] [place] [address] [phone] 5 07/17/2024 10:09:11 07/19/2024 07:47:42 Sprain of right foot 6253348412 9358767 S93.601A 07/17/24- improved.1 - pain worsening, XR negative yesterday, counseled will place in boot, repeat XR in 2 weeks. Seasonal a llergic rhinitis 577282049 J30.2 07/17/24- Counseled nasal rinse each night, OTC Flonase. [id number] Alesha Merchant DO [facility] ([facility]) [address] [place] [address] [phone] 5 08/05/2024 11:24:07 08/06/2024 15:52:33 Visual hallucinations 26637480 R44.1 concern for medication SE's from combinatio n of sertraline , amitriptyl ine, and norco. Pt has stopped norco, She is not sleeping without the amitriptyl ine, so we will decrease sertraline and amitriptyl ine.f/u 1 mt, sooner with any return of symptoms.c ounseled Depressive disorder 1928 9007 F32.9 improved with Sertraline , after loss of spouse, continue current tx. [id number] Alesha Merchant DO [facility] ([facility]) [address] [place] [address] [phone] 5 09/02/2024 11:09:48 09/02/2024 15:18:53 Visual hallucinations 88788556 R44.1 Resolved with change in medication s:2ndary to medication SE's from combinatio n of sertraline , amitriptyl ine, and norco. Pt has stopped norco, We did decrease sertraline and amitriptyl ine with resolution of symptoms. Depressive disorder 0146 8427 F32.9 improved with Sertraline , but pt wanting to go back on amitriptyl ine as well. will have pt start on 25mg amitriptyl ine and 50mg of sertraline . monitor for return of symptoms. do not take hydrocodon e expect for rarely for severe pain. Displaceme nt of cervical intervertebral disc without myelopathy 44612202 M50.20 Pain management has not been very helpful. We will continue as needed hydrocodon e only for severe pain and rarely. Continue home exercises. Counseled. [id number] Alesha Merchant DO [facility] ([facility]) [address] [place] [address] [phone] 5 09/02/2024 12:23:50 09/03/2024 11:42:56 Therapeutic drug monitoring assay 15813303 Z51.81 [id number] Alesha Merchant DO [facility] ([facility]) [address] [place] [address] [phone] 5 10/14/2024 12:26:32 10/17/2024 12:11:19 Displacement of cervical intervertebral disc without myelopathy 05898665 M50.20 Pain management has not been very helpful. We will continue as needed hydrocodon e only for severe pain and rarely. Continue home exercises. Counseled. Pain of le ft shoulder joint 7309011063 8579152 M25.512 I counseled pt on DX and treatment options. Pt desires to proceed with Joint injection today. Performed as documented . Pt tolerated well. counseled on limiting activity the next 24 hrs. return if problems. Pain of ri ght shoulder joint 6081777684 6306485 M25.511 After detailed discussion on diagnosis and treatment options, pt expressed verbal desire to proceed today with joint injection as per above.The patient expressed verbal understand ing of options, risks, procedure, and expectatio ns. Pt tolerated the procedure well. Aftercare instructio ns with expectatio ns and precaution s were discussed. [id number] Alesha Merchant DO [facility] ([facility]) [address] [place] [address] [phone] 5 11/27/2024 10:03:07 11/28/2024 14:24:40 Essential hypertension 43471066 I10 Stable. Continue diltiazem and losartan. Depressive disorder 3548 9007 F32.9 Stable on Sertraline and Amitriptyl ine. Fatigue 07715751 R53.83 chronic. not worsening. no new labs. Osteoporosis 99971623 M8 1.0 calcium, vit D daily. exercise daily. Urinary incontinence 165 657761 R32 11/27/24: discussed referral to MANAGER [facility]AN locally or Urology out of town, she prefers to stay local, will refer to Dr. Irene. Rheumatoid arthritis 698 30825 M05.79 continue with rheumatolo gist and Enbrel. Degenerati ve joint disease of thumb 8198327478 1084274 M19.049 11/27/24: deteriorat ing, pt will contact Dr. Pride, whom she has seen in the past and schedule appt for reeval. [id number] Alesha Merchant DO [facility] ([facility]) [address] [place] [address] [phone] 5 03/24/2025 09:50:22 03/24/2025 17:28:54 Pain of right wrist 5471536055 41914 M25.531 [id number] acute arthritis flair. I independen tly reviewed and interprete d x-ray images today. No acute fx, severe 1st metacarpal bone severe degen changes. Displaceme nt of cervical intervertebral disc without myelopathy 50736842 M50.20 continue rare prn norco. Continue home exercises. Counseled. Degenerati ve joint disease of thumb 3061376953 1013980 M19.049 03/24/25: acute flair. steroids. norco. Return to office with no improvemen t or any problems. Go to ER with severe worsening or severe problems.: deteriorat ing, pt will contact Dr. Pride, whom she has seen in the past and schedule appt for reeval. [id number] Alesha Merchant DO [facility] ([facility]) [address] [place] [address] [phone] 5 06/12/2025 08:31:07 06/18/2025 07:37:21 Essential hypertension 02949428 I10 Stable. Continue diltiazem and losartan. Depressive disorder 3548 9007 F32.9 06/12/25: pt stopped Sertraline , after 2-3 she found herself more tearful, will restart this at 50mg, counseled if she wants to try to stop this in the future we will want to decrease slowly, initially down to 25mg. Bereavement 92424788 Z63 .4 Patient lost her , Nicolás, early January 2024 to cancer. Was on [facility] hospice for 1 week.She has good family support and good to her support.Co ntinues Sertraline . stable. Pain of le ft shoulder joint 0931934471 1952199 M25.512 [id number] I counseled pt on DX and treatment options. Pt desires to proceed with Joint injection today. Performed as documented . Pt tolerated well. counseled on limiting activity the next 24 hrs. return if problems. Screening mammography 009303 Z12.31 [id number] Mammo to be scheduled to update after 06/25/24, if she doesn't hear from the hospital to schedule this she will let us know to send an order. [id number] Alesha Merchant DO [facility] ([facility]) [address] [place] [address] [phone] 5 07/23/2025 08:30:32 07/24/2025 13:42:52 Pain of right wrist 6353839864 16125 M25.531 [id number] 07/23/25: I have independen tly reviewed and interprete d XR results, d/w patient. Dr. Lucy Merchant: XR Right wrist: no acute fracture.E xplained the entire joint is arthritic, she will call Dr. Pride to discuss rescheduli ng her surgery, to let us know if another referral is needed.Cou nseled likely Arthritis flareup, will treat with steroid to decrease inflammati on at this time. Health Concerns Section Related Observation LastModified by Organization Detai ls LastModified Time None Recorded Concern Status LastModified by Organization Details LastModified Time None Recorded Advance Directives Directive None Recorded Payers Insurance Date Sequence Insurance Name Policy Number Policy Connors Covered Member ID Connors Member ID Guarantor Name 08/01/2025 1 [id number]IC[place]/ [place]VANTAGE - PPO) [id number] Judy Cernasonia [id number] Judy Cernasonia Notes Date Note Type Note Provider Name and Address Organization Details Recorded Time 5 text/html ROS as noted in the HPI Pt presents for acute illness, bilateral shoulder pain, left is worse She has had the ongoing pain since Fall 2023 whe she fell. She thought it would resolve but it has not. She rates the pain at 3/10 right now and worse at nightShe has limited ROM. She has difficulty getting dressed. She is requesting a refill on hydrocodone Alesha Merchant DO [address] [place] [address], [phone], [facility] [place] 10/14/2024 13:59:00 5 text/html ROS as noted in the HPI Pt presents for acute illness, bladder problem H/o bladder sling 15 yrs ago in [place], having urinary leakage with no warnings of needing to urinate. She is wanting to get a referral to have surgery for this to be done again unless there is a medication that she can take for this She also c/o brain fog. She has concerns about bruises that are still present for 2 weeks.She is not taking Aspirin, occasionally takes Ibuprofen. No prescription anticoagulant. She wants to discuss findings of the CT that was done 07/30/24Exam: CT Head Without ContrastExam date and time: 07/30/2024 9:56 PMFINDINGS:Brain: Mild diffuse white matter disease likely reflecting chronicmicrovascular ischemic changes.Cerebral ventricles: No ventriculomegaly.Paranasal sinuses: Visualized sinuses are unremarkable. No fluid levels.Mastoid air cells: Visualized mastoid air cells are well aerated.Bones: Unremarkable. No acute fracture.Soft tissues: Unremarkable.IMPRESSION:Ne manoj for intracranial hemorrhage or mass effect. Having b/l thumb pain, has seen Dr. Pride in the past, willing to return again for evaluation. Alesha Merchant DO [address] [place] [address], [phone], [facility], [place] 11/28/2024 17:01:21 5 text/html ROS as noted in the HPI Pt presents for right wrist pain and swelling She is unsure what she had, the pain started yesterday and she was unable to sleep last night d/t the pain. She rates her pain at 10/10 this am She was using a weed eater and had to re-string it and had difficulty getting the head off and thinks after twisting caused her pain Alesha Merchant, DO [address] [place] [address], [phone], [facility], Arabella 03/24/2025 11:03:06 5 text/html Annual WellnessReported by PatientSocial/Behavioral HistoryFor diet and nutrition, patient reportshealthy diet. For fracture risk, patient reportsno history of fracturesandno sudden unexplained fractures. For physical activity, patient reportsexercises on a regular basisandgood physical condition. For additional lifestyle factors, patient reportsno tobacco useanddrinks alcohol (mild-moderate).Mental Status:For depression risk, patient reportsfeels sad, empty, or tearfulandhistory of depressionbut reportsno agitation.Functional AbilityFor vision, patient reportsbriefly vision loss (glasses). For hearing, patient reportsno loss of hearing. Anxiety/DepressionReported by PatientHPIFor context, patient reportsbereavementbut reportsno major life stressors. For severity, patient reportsdenies suicidal ideations,able to maintain relationships, anddoes not interfere with activities of daily living. For associated symptoms, patient reportsdenies homicidal ideations,no significant weight gain,no significant weight loss,no visual/auditory hallucinations,no delusions,no shortness of breath,mood good,no anxiety,no crying spells,no panic,no isolation,no fatigue,sleeping well,appetite good,energy good,no apathy,maintaining functionality,no excessive worrying,no apprehension,no htn,no muscular tension,no leaden paralysis,no posttraumatic stress disorder,no panic symptoms,no obsessive-compulsive disorder,no feelings of worthlessness, andable to concentrate.ROS as noted in the HPI pt presents for annual exam and f/u bereavement Labs last done on 11/28/24, unremarkable. She reports she is doing well.She is sleeping ok with Amitriptyline.She d/c Sertraline, 2-3 weeks ago. She had started this medication after husbands passing 1.5 years. [place] like she did not need medication anymore, since stopping she has noticed she is very tearful.She was on 100mg of Sertraline, we had decreased it to 50mg. Left shoulder pain, would like joint injection. interfering with pts sleep. Her last injection was on 10/14/2024, with improvement. Taking Hydrocodone once to twice a month, took one last night d/t left lower back pain that was effecting her sleep. Has hernan with Dr. Rico today at 9. Due for mammo, she expects the hospital to call to schedule anytime, was last done 06/25/24.No current breast concerns. Checking bp occ, running 120s/70s The patient feels well with no complaints, has good energy level and is sleeping well. Nutrition: balanced diet. Patient exercises every other day. The patient denies any recent severe acute illness or hospitalizations or ER visits. The patient denies any recent medication changes and is tolerating meds well, taking them as prescribed. Alesha Merchant DO [address] [place] [address], [phone], [facility] 06/12/2025 09:47:21 5 text/html ROS as noted in the HPI Pt presents for acute visit, right wrist pain. She was using her leaf blower Monday, 3 days ago, and the pain started after she finished. Denies any specific injury.The pain has worsened since Monday and she is concerned that she has a fxPain worse with movement, lifting. She took Hydrocodone this am at 530 She admits that she was suppose to have surgery on her right thumb but she postponed it d/t her dx with cancer Alesha Merchant DO [address] [place] [address], [phone], [facility] 08/01/2025 14:13:22 OBGyn Episode No OBEpisode recorded.
--- OUTSIDE RECORDS SUMMARY | 2025-09-20 09:53 | XMS_ITS | Continuity of Care Document ---
Author Organization [facility], LArabella, [facility] ([facility]) Address [address] [place] [address] Care Team Providers Care Plan Checker Name Role Phone ALESHA OLSON Primary Care Provider ALYSHA Woods Referring Provider Assessment Encounter Date Assessment Date Assessment LastModified by Organization Details LastModified Time 07/23/2025 07/23/2025 Document scribed by Tico Reyez Blueprint Maker. I was present during interview and exam. I have reviewed and agree with above documentation . Dr. Alesha Olson. [email or web address] Not available 07/23/2025 09:15:51 Plan of Treatment Reminders Order Date Submit Date Provider Last Modified By Organization Details Last Modified Time Details Appointments None recorded. Lab None recorded. Referral None recorded. Procedures None recorded. Surgeries None recorded. Imaging XR, wrist, 3 or more view 2024 025 [email or web address] [facility], [address] [place], [address], 13:42:52 Medication Orders prednisone 20 mg tablet 2024 025 [facility], [address], [place], [address], 05:01:49 Patient TargetsNo targets recorded. Patient InstructionsNo instructions recorded. Reason for Referral None Reported. Results Created Date Observation Date Name Description Value Unit Range Abnormal Flag Note LastModifiedBy Organization Detail LastModifiedTime 07/08/2007/08/2025 MAMMO , scree sebas, digit al, bilat eral No observ ation record ed. rosamaria [facility] [address] [place], [address], 07/09/2025 11:24:37 07/23/2007/23/2025 XR, wrist , 3 or more view No observ ation record ed. NO [facility] [address] [place], [address], 07/24/2025 12:27:33 Result Notes None recorded. 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 5 10:59:16 Tendiniti s of right shoulder 616855339137 9101 Completed 11/27/2024 Francoise sanchez [facility] 5 11:01:46 Laceratio n of lip 302558673 Completed 11/27/2024 Francoise sanchez [facility] 5 10:59:21 History of malignant neoplasm of skin excluding melanoma 001859058 Completed 11/27/2024 Francoise sanchez [facility] 5 10:59:04 Degenerat ion of cervical intervert ebral disc 81846446 Active Francoise sanchez [facility] 5 11:00:40 Depressiv e disorder 86925297 Active 2022 Francoise sanchez [facility] 5 11:00:44 Chronic neck pain 206896521096 7 Active 2022 Francoise sanchez [facility] 5 11:00:37 Osteoporo sis 23439077 Active 2022 Francoisestew sanchez [facility] 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 5 11:00:56 Fatigue 62856364 Active 2022 Francoise sanchez [facility] 5 11:01:24 Essential hypertens ion 68432091 Active 2022 Francoise sanchez [facility] 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 5 10:59:53 Bereaveme nt 17961158 Active 2023 Francoise sanchez [facility] 5 10:58:45 Mass of right breast 167719948058 40384 Completed 202311/27/2024 Francoise sanchez, [facility] 5 10:59:30 Visual hallucina tions 77809492 Completed 202311/27/2024 Francoise sanchez [facility] 5 11:01:52 Degenerat sandra joint disease of thumb 321954298264 93303 Active 2024 Tico sanchez [facility] 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 Procedures Surgical History Date Name Laterality Status Provider Name and Address Organization Details Recorded Time 06/12/20 25 Joint Inj Kenalog- Shoulder, Hip, Knee completed Alesha Wesley [address], [address], [facility] 06/12/2025 09:42:38 10/14/19 25 Joint Inj Kenalog- Shoulder, Hip, Knee completed Alesha Olson [address], [address], [facility] 10/14/2024 13:58:29 07/02/20 24 jr cryo warts completed Tico Reyez [facility] 07/02/2024 12:14:17 hysterectomy completed Francoise Vincent [facility] 11/27/2024 11:02:27 repair of urinary bladder completed Francoise Vincent [facility] 11/27/2024 11:02:36 Imaging Results None recorded. [...] completed Recorded 11/08/19 23 10:58AM by Alesha Olson DO, Refill Request; Mail Order Quantity : [...] Available Cardizem CD daily 05/09 completed DM/sd; 38257; Recorded 11/08/19 23 10:36AM by Lexy Platt (Authori carla through [employer] , ), Refill Request; Mail Order Quantity : 90 Capsule; Refill Quantity : 0; Not Available Not Available Not Available amitripty line at bedtime 05/09 completed 61650; Recorded 11/08/19 23 10:35AM by Lexy Platt (Authori carla through [employer] gay), Refill Request; Mail Order Quantity : 90 [...] Updated DateTime 5 154.94 cm 24.4 kg/m2 44657.8 2 g 95 % 83 /min 18 /min 132/78 mm[Hg] Francoise Vincent [facility] 5 09:09:01 Social History Question Answer Notes LastModified by [employer] Details LastModified Time Tobacco Smoking Status Former Smoker Francoise Vincent [facility] 11/27/2024 11:05:42 What Is Your Level Of Caffeine Consumption? Heavy Information not available 11/27/2024 When Did You Quit Smoking? 16+yearssinc elastcigaret te Information not available 11/27/2024 What Was The Date Of Your Most Recent Tobacco Screening? 11/27/2024 [email or web address] Information not available 11/27/2024 How Much Tobacco Do You Smoke? 1 PPD [email or web address] Information not available 11/27/2024 Sex: Unknown Functional Status Question Answer Note LastModified by [employer] Details LastModified Time Do you use any illicit or recreational drugs? No [email or web address] Information not available 01/24/2023 Do you or have you ever used any other forms of tobacco or nicotine? No [email or web address] Information not available 01/24/2023 What is your level of alcohol consumption? Occasional Information not available 01/24/2023 Do you or have you ever used any nicotine-free cigarettes, vape, or chewing tobacco? No Information not available 11/27/2024 Mental Status None recorded. Family History Relationship Description Onset Age of this Age Resolved Age Notes LastModified by Organization Details LastModified Time Paternal Grandfather Malignant neoplasm of colon Not available 2024 11:04:28 Mother Rheumatoid arthritis Not available 2024 11:04:37 Mother Heart disease Not available 2024 11:04:46 Sister Diabetes mellitus [email or web address] Not available 2024 11:04:53 Medical History No medical history recorded. Gynecological HistoryNo gynecological history recorded. Obstetrics History GPAL:G 0 P 0 0 0 0 Immunizations Vaccine Type Date Status Note Provider Nam e and Address Organization Details Recorded Time Pneumococcal conjugate PCV20, polysaccharide [id number] conjugate, adjuvant, PF 4 completed Alesha Olson DO [address] [place] [address], [phone], [facility] 10/13/2023 16:37:18 Tdap 3 completed LEXY sanchez [facility] 02/21/2023 15:50:34 pneumococcal polysaccharide PPV23 7 completed Not Available [facility] 10/10/2023 10:59:37 Past Encounters Encounter ID Performer Location Encounter Start Date Encounter Closed Date Diagnosis/Indication Diagnosis SNOMED-CT Code Diagnosis ICD10 Code Diagnosis IMO Codes Diagnosis Note [id number] Alesha Olson DO [facility] ([facility]) [address] [place] [address] 07/23/2025 08:30:32 07/24/2025 13:42:52 Pain of right wrist 1456954771 48329 M25.531 [id number] 07/23/25: I have independen tly reviewed and interprete d XR results, d/w patient. Dr. Lucy Olson: XR Right wrist: no acute fracture.E xplained [...] by Organization Details LastModified Time None Recorded Payers Encounter Date Sequence Insurance Name Policy Number Policy Connors Covered Member ID Connors Member ID Guarantor Name 07/23/2025 1 [place]/ [place]ANTAGE - PPO) [id number] Judy Kristopher Meghan [id number] Judy Christianson Notes Date Note Type Note Provider Name and Address Organization Details Recorded Time 07/23/2025 text/html ROS as noted in the HPI [...] it d/t her dx with cancer Alesha Olson, DO [address] [place] [address], [phone], [facility] 08/01/2025 14:13:22 OBGyn Episode No OBEpisode recorded.
--- OUTSIDE RECORDS SUMMARY | 2025-09-20 09:54 | XMS_ITS | Patient Health Record ---
Author Organization [facility] Address [address] [place] [address] Care Team Providers Care Paste Worker Name Role Phone Wesley BROTHERS Nino Primary Care Provider Unavail able Ethan Pride Unavailable [phone] Allergies No Known Allergies Reason For Referral No Information Medications Medication SIG (Take, Route, Frequency, Duration) Notes Start Date End Date Status Sertraline HCl 50 MG Tablet Oral; Duration: 30 Days Active Losartan Potassium 25 MG Tablet TAKE 1 TABLET BY MOUTH ONCE DAILY Oral; Duration: 90 Days Active Estradiol 0.5 MG Tablet TAKE 1 TABLET BY MOUTH ONCE DAILY Oral; Duration: 90 Days Active Enbrel 50 MG/ML Solution Prefilled Syringe Subcutaneous; Duration: 28 Days Active dilTIAZem HCl ER Beads 240 MG Capsule Extended Release 24 Hour TAKE 1 CAPSULE BY MOUTH ONCE DAILY Oral; Duration: 90 Days Active Amitriptyline HCl 50 MG Tablet Oral; Duration: 90 Days Acti ve Social History Tobacco Use: Social History Observation Description Date Details (start date - stop date) Former Smoker NA - NA Social History Tobacco Use: Social Info Question Answer Notes Tobacco Control (Standard) Tobacco use: Former smoker How long has it been since you last smoked? 6-12 months Additional Details Category Social Info Options Details Drugs/Alcohol: Do you smoke marijuana? De nies Do you drink alcohol? 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 She has a history of rheumatoid arthritis and is currently taking Enbrel for this. I would hesitate prescribing another oral anti-inflammatory at this point. Rather, I have suggested using topical diclofenac gel to the area of her wrist joint twice a day. She agrees to do this. We will recheck in 4 weeks. 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 However, she is relatively asymptomatic with this and I would be hard pressed to recommend any surgical correction. I have told her this as well. She voices understanding and appreciation. Plan Of Treatment No Information Insurance Providers Payer Name Payer Address Payer Phone Subscriber Number Group Number Insured Name Patient Relationship to Insured Coverage Start Date Coverage End Date [facility] Medicare Replacement [address] [place] [address] [id number] Judy Mello Self - patient is the insured Medical (General) History Medical History History ICD Code Measles Mumps Chicken Pox Arthritis bladder infections High Blood Pressure Family History: Stroke or Ischemic Heart Disease Rheumatoid Arthritis Surgical History Surgery Date(Month/Year) tachycardia 2014 vaginal urinary 2024 vaginal sling 2010 carpal tunnel release, unspecified 1987 gall bladder removal 1981 hysterectomy 1975 Hospitalization History Reason Date(Month/Year) same as surgery
--- NOTE | 2025-09-20 09:59 | W.ED.EXTPRO ---
HPI - Extremity Problem General: Chief complaint: Extremity Injury, Lower Stated complaint: rt leg pain Time Seen by Provider: 09/20/25 09:52 History of Present Illness: 74-year-old female With a history of degenerative disc disease, nonmelanoma skin cancer, and rheumatoid arthritis who presents emergency room with right hip pain. This is nontraumatic. Started a couple of days ago. Low back pain that goes into her groin and thigh. No saddle numbness, no fecal or urinary retention or incontinence, no focal motor deficit, no sensory deficit. Related Data Home Medications ?Medication ?Instructions ?Recorded ?Confirmed amitriptyline 50 mg tablet 50 mg PO BEDTIME 10/21/19 08/01/23 cholecalciferol (vitamin D3) 75 3,000 unit PO DAILY 10/21/19 08/01/23 mcg (3,000 unit) tablet multivitamin 1 tab PO QAM 10/21/19 08/01/23 vitamin B complex 1 tab PO DAILY 10/21/19 08/01/23 folic acid 800 mcg tablet 800 mg PO BID 01/23/20 08/01/23 biotin 1 cap PO DAILY 04/24/20 08/01/23 estradiol 0.5 mg tablet 0.5 mg PO DAILY 04/24/20 08/01/23 melatonin 5 mg tablet 5 mg PO BEDTIME PRN Sleep 04/24/20 08/01/23 prednisone 10 mg tablet See Rx Instructions PO .COMPLEX 06/29/20 08/01/23 PRN joint pain diltiazem HCl 240 mg 240 mg PO DAILY 10/20/20 08/01/23 capsule,extended release 24 hr (Cardizem CD) losartan 25 mg tablet 25 mg PO DAILY 10/20/20 08/01/23 Previous Rx's ?Medication ?Instructions ?Recorded etanercept 50 mg/mL (1 mL) 50 mg SUBCUT Q7D #4 mL 07/14/20 subcutaneous pen injector (Enbrel Frankieick) methotrexate sodium 25 mg/mL 12.5 mg (0.5 mL) SUBCUT .Q7days 07/21/20 injection solution #10 mL hydrocortisone 2.5 % topical cream 1 applic topical BID #30 grams 10/20/20 hydrocodone 5 mg-acetaminophen 325 1 tab PO Q6H PRN Pain #15 tabs 06/28/22 mg tablet TRACTION NECK BRACE #1 ea 08/01/23 dexamethasone 6 mg tablet 6 mg PO DAILY 5 days #5 tabs 09/20/25 hydrocodone 5 mg-acetaminophen 325 1 tab PO Q8H PRN pain #14 tabs 09/20/25 mg tablet polyethylene glycol 3350 17 17 g PO DAILY #510 grams 09/20/25 gram/dose oral powder (Miralax) Allergies Allergy/AdvReac Type Severity Reaction Status Date / Time minoxidil Allergy B/p Verified 07/30/24 20:07 increases leflunomide AdvReac Severe ER visit Verified 07/30/24 20:07 due to HTN Review of Systems Narrative: Constitutional symptoms: Negative except as documented in HPI. Skin symptoms: Negative except as documented in HPI. Eye symptoms: Negative except as documented in HPI. ENMT symptoms: Negative except as documented in HPI. Respiratory symptoms: Negative except as documented in HPI. Cardiovascular symptoms: Negative except as documented in HPI. Gastrointestinal symptoms: Negative except as documented in HPI. Genitourinary symptoms: Negative except as documented in HPI. Musculoskeletal symptoms: Negative except as documented in HPI. Neurologic symptoms: Negative except as documented in HPI. Psychiatric symptoms: Negative except as documented in HPI. Endocrine symptoms: Negative except as documented in HPI. 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 Recurrent UTI High risk medication use Immunization counseling Hepatitis C antibody test positive Surgical History History of hysterectomy with bilateral oophorectomy History of cholecystectomy History of thyroid surgery Family History Other CAD (coronary artery disease) Diabetes Hypertension Rheumatoid arthritis Denies family history of Chronic kidney disease (CKD) Systemic lupus erythematosus (SLE) in adult Lung disease Cancer Stroke Social History Smoking and tobacco/nicotine status: former use of tobacco/nicotine Quit status (tobacco/nicotine): has quit using Year quit tobacco: 2007 Alcohol intake: current Alcohol intake frequency: 0-2 Drinks per Day Alcohol type: wine Substance/Drug Use: unknown Lives independently: No Marital status: Current occupational status: employed Physical Exam Narrative: EXAM NARRATIVE: General: Alert, no acute distress. Skin: warm and dry Head: Normocephalic Neck: Trachea midline Eye: Extraocular movements are intact. Ears, nose, mouth and throat: Oral mucosa moist Respiratory: Respirations are non-labored Musculoskeletal: Normal ROM, no shortening or rotation Gastrointestinal: Abdomen does not appear distended Neurological: Alert and oriented, No focal neurological deficit observed. Psychiatric: Cooperative, appropriate mood & affect. Course Vital Signs: Vital signs: Vital Signs Temperature 97.8 F 09/20/25 09:51 Pulse Rate 92 09/20/25 09:51 Respiratory Rate 17 09/20/25 09:51 Blood Pressure 168/74 09/20/25 09:51 Pulse Oximetry 94 09/20/25 09:51 Oxygen Delivery Me thod Room Air 09/20/25 09:51 MDM - Extremity (Nontraumatic) Medical Decision Making Medical decision making Patient's reason for coming to the emergency room: Hip pain Social determinants: Patient is retired I reviewed the patient's medical record. Last visit to the emergency room was in July for suture removal. Prior to that she had a laceration to her lip. I reviewed the patient's current home meds [employer] monitoring: Patient has had 2 brief hydrocodone prescriptions in the past year. Alternate historians: None patient does not have trauma but an x-ray was ordered. Differential includes but not limited to and based on the above HPI, review of systems and physical exam: Hip fracture, femur fracture, pelvic fractures including pubic rami and acetabular fractures, hip strain, hip contusion X-ray of the pelvis and hip were ordered. X-ray of the left hip and pelvis: No acute fractures or dislocations. Films were interpreted by myself the emergency room provider and pending final radiology review. Reexamination: Patient remained stable. No increased work of breathing. No altered mental status. No focal motor deficits. Assessment and plan: Hip pain/sciatica ?Cristian and Kelvin in the emergency room - Discharged home - Discussed plan with patient. Answered any questions. - Evaluation and treatment of this problem were appropriate in the emergency setting. XR interpretation done by ED provider, pending radiology final review Discharge Plan Discharge Patient Disposition: Home Clinical Impression: Acute hip pain Condition: Stable Prescriptions: New hydrocodone-acetaminophen 5-325 mg tablet 1 tab PO Q8H PRN (Reason: pain) Qty: 14 0RF Rx Instructions: Take 1/2 to 1 tab every 8 hours as needed for pain dexamethasone 6 mg tablet 6 mg PO DAILY 5 Days Qty: 5 0RF polyethylene glycol 3350 [Miralax] 17 gram/dose powder 17 g PO DAILY Qty: 510 0RF Rx Instructions: Take 1 scoop daily while taking pain medications. No Action diltiazem HCl [Cardizem CD] 240 mg capsule,extended release 24hr 240 mg PO DAILY losartan 25 mg tablet 25 mg PO DAILY hydrocortisone 2.5 % cream 1 applic topical BID Qty: 30 1RF Rx Instructions: Apply to face BID x 1-2 weeks. May use on hands BID 2 wks/mo prn vitamin B complex Tablet 1 tab PO DAILY amitriptyline 50 mg tablet 50 mg PO BEDTIME multivitamin Tablet 1 tab PO QAM cholecalciferol (vitamin D3) 3,000 unit tablet 3,000 unit PO DAILY folic acid 800 mcg tablet 800 mg PO BID Enbrel SureClick 50 mg/mL (1 mL) pen injector 50 mg SUBCUT Q7D Qty: 4 3RF Rx Instructions: pt states she takes on sundays prednisone 10 mg tablet See Rx Instructions PO .COMPLEX PRN (Reason: joint pain) Rx Instructions: take 1 tab daily for 3-5 days prn flares PO PRN; (DME) TRACTION NECK BRACE See Rx Instructions .Route .MEDSUPPLY Qty: 1 0RF Rx Instructions: As directed methotrexate sodium 25 mg/mL solution 12.5 mg SUBCUT .Q7days Qty: 10 1RF estradiol 0.5 mg tablet 0.5 mg PO DAILY melatonin 5 mg Tablet 5 mg PO BEDTIME PRN (Reason: Sleep) biotin 1 cap PO DAILY hydrocodone-acetaminophen 5-325 mg tablet 1 tab PO Q6H PRN (Reason: Pain) Qty: 15 0RF Rx Instructions: pt states she also has 10-325mg from 5 years ago-pt states she takes only prn Discharge Orders: Discharge ED (Routine); Ordered 09/20/25 Ordered By: Sherine Meeks Referrals: Nino Olson DO [Primary Care Provider, Family Practice] Patient Instructions: Opioid Safety, Pain Management, Patient Portal & Jessica Instructions Activity Restrictions/Additional Instructions: [facility]. You have been screened and evaluated and felt safe for discharge. Health conditions do change or evolve sometimes and as such it is important that you follow up with your Primary Doctor to be re checked, 3-5 days is a general good time frame for follow up. You are always welcome to return to the ED for re assessment if your symptoms are worsening or you have new concerns. (Please note that included in your discharge packet is information concerning opioid safety and pain management. This information is given to all patients who are discharged from the ER regardless of their discharge diagnosis or the medicines they usually take or are prescribed.) Print Language: Indonesian Coding Level of Care Code ED Hospital Administrator for Stu Murillo
--- NOTE | 2025-09-20 10:03 | XRR_ITS ---
PROCEDURE INFORMATION: Exam: XR Right Hip Exam date and time: 09/20/2025 10:07 AM Age: 74 years old Clinical indication: Hip pain; Right hip TECHNIQUE: Imaging protocol: Radiologic exam of the right hip. Views: 2 or 3 views hip with pelvis when performed. COMPARISON: CR XR pelvis 1-2V* [id number] 07/30/2024 10:18 PM FINDINGS: Bones/joints: Unremarkable. No acute fracture. Soft tissues: Unremarkable. XR/XR hip RT 2-3V wo/w pel* [id number] IMPRESSION: No acute findings.
[2025-09-20 10:28] VITALS: BP 168/74; PULSE 84; O2SAT 92
== END 2025-09-20 10:31 | disposition home or self-care (01) ==
PROVIDERS: Emergency Provider Emergency Medicine; PCP Electrodiagnostic Medicine
DX: M25.551 Pain in right hip (principal); Z87.891 Personal history of nicotine dependence; Z85.828 Personal history of other malignant neoplasm of skin
CPT/HCPCS: 73502; 96372; 99284; J1100